=== PATIENT | male | born 1975 | race Caucasian/White ===

== ENCOUNTER 2016-12-02 23:55 | Inpatient (IN) | payer OTHER ==
[~2016-12-02] VITALS: Ht 190.5 cm; Wt 79.8 kg
--- NOTE | 2016-12-03 00:12 | NUR ---
PT BIBA FROM HOME. PT IS ONLY UKRANIAN SPEAKING BUT GODDAUGHTER IS AT BEDSIDE FOR TRANSLATION. PER FAMILY, PT WAS SENT HOME FROM WORK MONDAY MORNING FOR DRUNKEN BEHAVIOR. WHEN PT GOT HOME FAMILY STATES THAT THEY DID NOT NOTICE ANY ALCOHOL CONSUMPTION BUT PT WAS NOT ACTING LIKE HIMSELF. PT'S FAMILY STATES PT WAS AGITATED, ANSWERED QUESTIONS CORRECTLY, BUT WAS SLOW TO RESPOND. FAMILY STATES THAT PT HAS ALSO BEEN MIXING UP WORDS. PT RECENTLY STARTED TAKING INSULIN FOR DM. AT HOME FAMILY STATES BLOOD SUGAR WAS 328 AND PT TOOK INSULIN. UPON ED ARRIVAL PT'S FINGERSTICK WAS 382. FAMILY IS UNSURE OF HOW MUCH INSULIN PT TOOK AND PT ALSO CANNOT REMEMBER HOW MUCH WAS TAKEN. PT ALERT AND ORIENTED, DENIES ANY PAIN OR WEAKNESS. GOOD STRENGHTH IN BLE AND BUE.
--- NOTE | 2016-12-03 00:40 | NUR ---
PT AMBULATORY TO RESTROOM WITH EVEN AND STEADY GAIT, FAMILY MEMBER IN ATTENDANCE.
[2016-12-03 00:49] LABS: ABSOLUTE BASOPHIL COUNT 0 /CUMM (0.0-0.2); ABSOLUTE EOSINOPHIL COUNT 0.1 /CUMM (0.0-0.7); ABSOLUTE GRANULOCYTE CT 2.1 /CUMM (1.4-6.5); ABSOLUTE LYMPH COUNT 0.9 /CUMM (1.2-3.4); ABSOLUTE MONOCYTE COUNT 0.5 /CUMM (0.10-0.60); BASOPHIL % 0.6 % (0.0-2.0); EOSINOPHIL % 1.7 % (0-5); GRANULOCYTE % 58.4 % (42.2-75.2); HEMATOCRIT 38.8 % (42-52); MEAN CORPUSCULAR HGB 30.5 PG (27.0-31.0); MEAN CORPUSCULAR HGB CONC 34.7 G/DL (33.0-37.0); MEAN CORPUSCULAR VOLUME 88.1 FL (80.0-94.0); MEAN PLATELET VOLUME 7.8 FL (7.4-10.4); RBC DISTRIBUTION WIDTH 15.3 % (11.5-14.5); RED BLOOD CELL CT 4.41 /CUMM (4.70-6.10); WHITE BLOOD CELL COUNT 3.7 /CUMM (4.8-10.8)
[2016-12-03 01:03] LABS: PLATELET COUNT 49 /CUMM (130-400)
--- NOTE | 2016-12-03 01:17 | NUR ---
PT AWAITING PROVIDER EVAL. FAMILY REMAINS AT BEDSIDE.
--- NOTE | 2016-12-03 01:36 | CT SCAN REPORT ---
EXAMINATION: CT HEAD WITHOUT CONTRAST CLINICAL INFORMATION: Altered mental status. Trauma. COMPARISON: None. TECHNIQUE: Contiguous axial imaging was performed from the skull base to vertex without intravenous contrast. DLP: 648 mGy-cm. FINDINGS: The study is somewhat motion limited. There is no evidence of acute intracranial hemorrhage or territorial infarction. No abnormal mass effect or midline shift is seen. Dunlap to white matter differentiation is well preserved. No extra-axial fluid collections are identified. No hydrocephalus. No significant volume loss. There is no abnormal attenuation within the brain parenchyma. The osseous structures and soft tissues are normal. The mastoid air cells and visualized portions of the paranasal sinuses are well aerated. IMPRESSION: No acute intracranial pathology.
--- NOTE | 2016-12-03 01:39 | ED AMS/SEIZURE/WEAK/DIZZY ---
History of Present Illness General Chief Complaint: General Adult Stated Complaint: BIBA, WEAKNESS Source: patient, family Exam Limitations: somnulence Vital Signs & Intake/Output Vital Signs & Intake/Output Vital Signs Date Time Temp Pulse Resp B/P B/P Pulse O2 O2 Flow FiO2 Mean Ox Delivery Rate 12/04 1418 98.2 99 20 145/82 97 12/04 0940 63 130/76 12/04 0729 97.8 63 20 130/76 97 Room Air 12/03 2238 98.3 67 20 124/64 97 Room Air ED Intake and Output 12/04 0000 12/03 1200 Intake Total 1775 0 Output Total Balance 1775 0 Intake, IV 375 Intake, Oral 1400 0 Number 1 Bowel Movements Patient 176 lb Weight Weight Reported by Patient Measurement Method Allergies Coded Allergies: No Known Allergies (12/03/16) Reconcile Medications Nadolol 20 MG TABLET 1 TAB PO DAILY ESOPHAGEAL VARICES (Reported) Omeprazole 40 MG CAPSULE.DR 1 CAP PO DAILY LIVER/GERD (Reported) Triage Note: PT BIBA FROM HOME. PT IS ONLY UKRANIAN SPEAKING BUT GODDAUGHTER IS AT BEDSIDE FOR TRANSLATION. PER FAMILY, PT WAS SENT HOME FROM WORK MONDAY MORNING FOR DRUNKEN BEHAVIOR. WHEN PT GOT HOME FAMILY STATES THAT THEY DID NOT NOTICE ANY ALCOHOL CONSUMPTION BUT PT WAS NOT ACTING LIKE HIMSELF. PT'S FAMILY STATES PT WAS AGITATED, ANSWERED QUESTIONS CORRECTLY, BUT WAS SLOW TO RESPOND. FAMILY STATES THAT PT HAS ALSO BEEN MIXING UP WORDS. PT RECENTLY STARTED TAKING INSULIN FOR DM. AT HOME FAMILY STATES BLOOD SUGAR WAS 328 AND PT TOOK INSULIN. UPON ED ARRIVAL PT'S FINGERSTICK WAS 382. FAMILY IS UNSURE OF HOW MUCH INSULIN PT TOOK AND PT ALSO CANNOT REMEMBER HOW MUCH WAS TAKEN. PT ALERT AND ORIENTED, DENIES ANY PAIN OR WEAKNESS. GOOD STRENGHTH IN BLE AND BUE. Triage Nurses Notes Reviewed? yes HPI: Patient presents for evaluation of severe constant and worsening lethargy and weakness. In addition the patient's blood sugar levels have been running in the 300 range despite the use of insulin. There is been no associated fever or cold symptoms fall sore trauma. The family noted that the patient's voice was hoarse over the past day or 2. Patient denies alcohol use, having quit about 5 weeks ago. He denies drug use. Past History Travel History Traveled to [place] past 21 day No Medical History Any Pertinent Medical History? see below for history Hepatic: hepatitis C Endocrine: diabetes Surgical History Surgical History: non-contributory Psychosocial History What is your primary language Hebrew Tobacco Use: Never used Family History Hx Contributory? No Review of Systems Review of Systems Constitutional: Reports: weakness. EENTM: Reports: no symptoms. Respiratory: Reports: no symptoms. Cardiovascular: Reports: no symptoms. GI: Reports: no symptoms. Genitourinary: Reports: no symptoms. Musculoskeletal: Reports: no symptoms. Skin: Reports: no symptoms. Neurological/Psychological: Reports: no symptoms. Hematologic/Endocrine: Reports: no symptoms. Immunologic/Allergic: Reports: no symptoms. All Other Systems: Reviewed and Negative Physical Exam Physical Exam General Appearance: see below Comments: Gen.: Well-nourished, well-developed, no acute respiratory distress. Somnolent but easily arousable. Head: Normocephalic, atraumatic. Eyes: Normal inspection bilaterally Ears: Normal inspection bilaterally Nose: Normal inspection Throat/mouth : Moist mucosa Neck: Supple, full range of motion, no goiter Heart: Regular rate and rhythm, no murmurs rubs or gallops Lungs: Clear to auscultation bilaterally with normal air entry Chest: Nontender Back: Normal range of motion Abdomen: Soft, nontender, nondistended, normal bowel sounds Extremities: Normal range of motion grossly, equal radial pulses, no cyanosis clubbing or edema Neurologic: Cranial nerves grossly intact, speech is clear Skin: warm and dry Psychiatric: Calm, cooperative, no apparent delusions or hallucinations Core Measures ACS in differential dx? No CVA/TIA Diagnosis: No Severe Sepsis Present: No Septic Shock Present: No Progress Differential Diagnosis: alcohol intoxication, dehydration, drug intoxication, electrolyte imbalance, hypoglycemia, hypoxia Plan of Care: Orders Procedure Date/time Status CBC WITHOUT DIFFERENTIAL 12/05 0600 Active Consistent Carbohydrate 3 12/04 B Active Current Medications Sig/Carlos Eduardo Start time Last Medication Dose Stop Time Status Admin Insulin Aspart 0 AT BEDTIME 12/040 AC 12/04 (NovoLOG) 2136 Insulin Detemir 15 UNITS BID 12/04 2200 AC 12/04 (Levemir) 213 Lactulose 30 GM TID 12/04 1600 AC 12/04 (Enulose 20GM/30ML) 213 Insulin Aspart 0 TIDAC 12/04 1200 AC 12/04 (NovoLOG) 1627 Insulin Aspart 12 UNITS ONCE ONE 12/04 0015 CAN (NovoLOG) 12/04 0016 Nadolol 20 MG DAILY 12/03 1000 AC 12/04 (Corgard) 0940 Diclofenac Sodium 1 ARYA 4 TIMES/DAY PRN 12/03 0700 AC (Voltaren 1% Gel) Acetaminophen 650 MG Q6P PRN 12/03 0500 AC (Tylenol) Pantoprazole Sodium 40 MG DAILY 12/03 0500 AC 12/04 (Protonix) 0939 Laboratory Tests 12/04/16 0635: Anion Gap 7, Estimated GFR > 60, BUN/Creatinine Ratio 22.5, Total Bilirubin 1.7 H, Direct Bilirubin 0.4, AST 86 H, ALT 97 H, Alkaline Phosphatase 96, Total Protein 6.3, Albumin 2.8 L, CBC w Diff NO MAN DIFF REQ, RBC 4.57 L, MCV 88.4, MCH 30.8, RDW 15.5 H, MPV 8.7, Gran % 63.8, Lymphocytes % 24.0, Monocytes % 9.7 H, Eosinophils % 2.2, Basophils % 0.3, Absolute Granulocytes 2.4, Absolute Lymphocytes 0.9 L, Absolute Monocytes 0.4, Absolute Eosinophils 0.1, Absolute Basophils 0, PUBS MCHC 34.8 Diagnostic Imaging: Discussed w/RAD: CT Scan. Radiology Impression: PATIENT: MITESH CHI PRESENT AGE: 41 PATIENT ACCOUNT NO: [id number] : 74 LOCATION: [facility] ORDERING PHYSICIAN: MICHELLE SCOTT MD SERVICE DATE: 12/03/16 EXAM TYPE: CAT - CT HEAD WO IV CONTRAST EXAMINATION: CT HEAD WITHOUT CONTRAST CLINICAL INFORMATION: Altered mental status. Trauma. COMPARISON: None. TECHNIQUE: Contiguous axial imaging was performed from the skull base to vertex without intravenous contrast. DLP: 648 mGy-cm. FINDINGS: The study is somewhat motion limited. There is no evidence of acute intracranial hemorrhage or territorial infarction. No abnormal mass effect or midline shift is seen. Dunlap to white matter differentiation is well preserved. No extra-axial fluid collections are identified. No hydrocephalus. No significant volume loss. There is no abnormal attenuation within the brain parenchyma. The osseous structures and soft tissues are normal. The mastoid air cells and visualized portions of the paranasal sinuses are well aerated. IMPRESSION: No acute intracranial pathology. DICTATED BY: CHATA QUIÑONEZ,ANEL DATE/TIME DICTATED:12/03/16129 PANTOGRAPH ENGRAVER: CITLALY DATE/TIME TRANSCRIBED:12/03/16129 CONFIDENTIAL, DO NOT COPY WITHOUT APPROPRIATE AUTHORIZATION. <Electronically signed in Other Vendor System> SIGNED BY: CHATA QUIÑONEZ,ANEL 12/03/16135 Initial ED EKG: NSR, rate (63), RBBB Comments: 12/03/2016 3:20:57 AM patient and family updated on test results. He has received 2 L normal saline and I have ordered subcutaneous insulin for his hyperglycemia and lactulose for his hyperammonemia. Departure Departure Disposition: STILL A PATIENT Condition: Stable Clinical Impression Primary Impression: Hepatic encephalopathy Secondary Impressions: Hyperglycemia Referrals: UNKNOWN (PCP/Family) Departure Forms: Customer Survey General Discharge Information Admission Note Spoke With: REINA QUI[facility]ONEZ,[facility] Documentation of Exam: Documentation of any treatments & extenuating circumstances including Concerns Regarding Discharge (functional status, medication knowledge or non-compliance, living conditions, etc.) that warrant an admission rather than observation: Patient has experienced worsening mental status over the past few days secondary to hepatic encephalopathy as a combination of a history of hepatitis C and alcoholism. The patient's family states that he has not been himself recently and I feel he is encephalopathy would prevent him from compliance with outpatient treatment plan. I also feel he would not be able to maintain his activities of daily living. Is likely he would return in worse clinical condition including potential injury secondary to falls or poor judgment/ confusion. Complicating matters is the patient's history of poorly controlled diabetes with a glucose of just under 400. This will also require treatment with IV fluids and insulin. Patient's ammonia level and blood glucose level should be monitored and treated accordingly. He should be counseled on dietary modifications to control his ammonia level and glucose. Endocrine and GI consultations should be considered.. I feel this patient will require a multiple day hospitalization. Critical Care Note Critical Care Note Critical Care Time: 30-74 min
--- NOTE | 2016-12-03 01:40 | NUR ---
DR SCOTT AT BEDSIDE FOR EVAL.
--- NOTE | 2016-12-03 03:22 | NUR ---
PT MEDICATED PER EMAR WITH NOVOLIN R FOR FINGERSTICK OF 346, ENULOSE AND NS BOLUS INFUSING.
--- NOTE | 2016-12-03 03:42 | NUR ---
PT AMBULATORY TO RESTROOM WITH EVEN AND STEADY GAIT.
--- NOTE | 2016-12-03 03:58 | History & Physical ---
JORDY QUIÑONEZ,ALEKSANDR 12/03/16 0353: General Information and HPI MD Statement: I have seen and personally examined MITESH CHI and documented this H&P. The patient is a 41 year old M who presented with a patient stated chief complaint of []. Source of Information: patient, family Exam Limitations: confusion History of Present Illness: Patient is a 41-year-old Togolese Speaking male, chronic smoker with significant past medical history of partialy treated hepatitis C , uncontrolled diabetes presented with chief complaints of generalized weakness and high sugar level. Chronic hepatitis C, decompensated -it was diagnosed around 10-12 years ago at the [facility] and was treated by injection every week for a year. After that he did not have any follow up. Recently, he started having generalized weakness with history of an intentional weight loss around 60 pound and bleeding gums. So he was evaluated at [facility] on 11/17/2016.He had EGD at in [facility] which showed large esophageal varices, gastric varices and gastritis. He also found to have thrombocytopenia (44,000).CT abdomen and pelvis at that time were showing evidence of portal hypertension with varices. Denies any history of blood transfusion, tatoo, Personal history - he moved from the [facility] to [facility] 2 years ago. 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 He smokes cigarettes around 10 cigarettes per day since last 20 years. He occasionally drinks alcohol. He denies any IV drug abuse. Allergies - no known drug allergies Allergies/Medications Allergies: Coded Allergies: No Known Allergies (12/03/16) Home Med list Insulin Aspart (Novolog) 100 UNIT/ML VIAL 0 SC TIDAC DM Blood sugar # UNIT Less than 80 0 80-100 4 101-120 4 121-150 4 151-200 6 201-250 8 251-300 10 301-350 12 351-400 14 More than 400 16 units Insulin Aspart (Novolog) 100 UNIT/ML VIAL 0 SC BEDTIME DM Blood sugar # UNITS Less than 250 0 251-300 2 301-350 3 351-400 4 more than 400 5 Insulin Detemir (Levemir) 100 UNIT/ML VIAL 15 UNITS SC BID Diabetes Lactulose 20 GRAM/30 ML SOLUTION 30 GM PO TID HEPATIC ENCEPHALOPATHY Nadolol 20 MG TABLET 1 TAB PO DAILY ESOPHAGEAL VARICES (Reported) Omeprazole 40 MG CAPSULE.DR 1 CAP PO DAILY LIVER/GERD (Reported) Past History Travel History Traveled to [place] past 21 day No Medical History Hepatic: hepatitis C Endocrine: diabetes Surgical History Surgical History: non-contributory Review of Systems Review of Systems Constitutional: Denies: no symptoms. Comments cannt comment as patient was sleepy and also was not able to understand south [place] Exam & Diagnostic Data Last 24 Hrs of Vital Signs/I&O Vital Signs Date Time Temp Pulse Resp B/P B/P Pulse O2 O2 Flow FiO2 Mean Ox Delivery Rate 12/03 0445 98.0 71 20 137/81 98 Room Air 12/03 0003 98.2 70 20 148/80 100 Room Air Intake & Output 12/03 0800 12/03 0000 12/02 1600 Intake Total 0 Output Total Balance 0 Intake, Oral 0 Patient 80 kg Weight Physical Exam General Appearance Alert, Cooperative, No Acute Distress Skin spider navei Neck Supple, raised JVD Cardiovascular Normal S1, Normal S2 Lungs Clear to Auscultation, Normal Air Movement Abdomen Soft, No Tenderness Neurological Normal Speech, Strength at 5/5 X4 Ext, Normal Tone Extremities No Clubbing, No Cyanosis, No Edema Vascular Normal Pulses, Pulses Symmetrical Last 24 Hrs of Labs/Evaristo: Laboratory Tests 12/03/16 0155: Ammonia 74 H 12/03/16 0048: Urine Opiates Screen < 100.00, Methadone Screen < 40, Barbiturate Screen < 60, Ur Phencyclidine Scrn < 6.00, Amphetamines Screen < 100, U Benzodiazepines Scrn < 85, Urine Cocaine Screen < 50, Urine Cannabis Screen < 5.00, Urinalysis LIGHT H, Urine Color YEL, Urine Clarity HAZY H, Urine pH 7.0, Ur Specific [place] 1.015, Urine Protein NEG, Urine Ketones NEG, Urine Nitrite NEG, Urine Bilirubin NEG, Urine Urobilinogen 2.0 H, Ur Leukocyte Esterase TRACE H, Ur Microscopic SEDIMENT EXAMINED, Urine RBC 25-50 H, Urine WBC 3-5 H, Ur Epithelial Cells RARE, Urine Bacteria FEW H, Micro UA Comment , Urine Hemoglobin LARGE H, Urine Glucose >=1000 H 12/03/16 0035: Anion Gap 8, Estimated GFR > 60, BUN/Creatinine Ratio 28.0 H, Glucose 376 H, Calcium 9.1, Total Bilirubin 2.0 H, AST 86 H, ALT 99 H, Alkaline Phosphatase 102, Troponin I < 0.01, Total Protein 6.1 L, Albumin 2.7 L, Globulin 3.4, Albumin/Globulin Ratio 0.8 L, TSH 1.160, Thyroxine (T4) 9.3, Thyroxine Binding Indx 41.8 H, CBC w Diff NO MAN DIFF REQ, RBC 4.41 L, MCV 88.1, MCH 30.5, RDW 15.3 H, MPV 7.8, Gran % 58.4, Lymphocytes % 25.5, Monocytes % 13.8 H, Eosinophils % 1.7, Basophils % 0.6, Absolute Granulocytes 2.1, Absolute Lymphocytes 0.9 L, Absolute Monocytes 0.5, Absolute Eosinophils 0.1, Absolute Basophils 0, PUBS MCHC 34.7, Serum Alcohol < 10.0 Microbiology 12/04 47 URINE ROUT: Urine Culture - RECD Diagnostic Data EKG Results NSR, RBBB, Assessment/Plan Assessment: Patient is a 41-year-old Togolese Speaking male, chronic smoker with significant past medical history of partialy treated hepatitis C , uncontrolled diabetes presented with chief complaints of generalized weakness and high sugar level. Vital signs at the time of admission-temperature 98.2, pulse 70, respiratory rate 20, blood pressure 140/80, SaO2 100% on room air Pertinent labs -hemoglobin 13.4, hematocrit 38.8, platelet count 49,000, K-3.7, glucose 376, total bilirubin 2.0, AST 86, AST 99, ammonia 74, albumin 2.7, thyroxine-binding index 41.8, urine RBC 25-50, urine glucose more than thousand, urine hemoglobin large, U tox negative, Plan - Decompensated cirrhosis with hepatic encephalopathy secondary to hepatitis C, contracted due to unknown etiology * We will admit the patient into general medical floor * We will keep patient nothing by mouth * Neuro check every 2 hourly * Watch for the sign of bleeding * We will avoid sedating hypnotics * We will place a GI consult and followed the recommendation * We will start patient on lactulose 20 grams 3 times a day, with target of 2-3 bowel movements per day * We'll start patient on tablet rifaximin 550 milligrams 3 times a day * We will continue patient on nadolol 20 milligrams daily Uncontrolled diabetes * We will start patient on insulin, Levemir 10 units at nighttime * We will check blood sugar level 3 times a day and bed time, and gave NovoLog according to the sliding scale Thrombocytopenia * Probably secondary to the cirrhosis * We will regularly monitor it and watch for the bleeding CODE STATUS-full code DVT prophylaxis-ALP S, avoid heparin as patient is having thrombocytopenia Diet - low protein diet As Ranked By This Provider Problem List: 1. Hepatic encephalopathy 2. Hepatitis C infection 3. Diabetes mellitus Core Measures/Miscellaneous Acute Coronary Syndrome ACS Diagnosis: No Cerebrovascular Accident CVA/TIA Diagnosis: No Congestive Heart Failure CHF Diagnosis: No Venous Thromboembolism VTE Risk Factors: Age > 40 No [facility] VTE prophylaxis d/t: No contraindications No VTE Pharm Prophylaxis d/t: No contraindications VTE Diagnosis: No VTE Type: NONE VTE Confirmed by (Test): NONE Severe Sepsis Severe Sepsis Present: No Septic Shock Septic Shock Present: No Miscellaneous Documentation Attending Case Discussed With: REINA QUIÑONEZ,[facility] Primary Care Physician: UNKNOWN Patient sees these Specialists none Level of Patient Care: General Medicine [place] ONTIVEROS 12/03/16 0502: Resident Review Statement Resident Statement: examined this patient, discussed with manager internet, agreed with manager internet Other Findings: Patient is a 41-year-old Togolese man with past medical history significant for chronic hepatitis C resulted in liver cirrhosis with esophageal varices, thrombocytopenia, type 2 diabetes mellitus present illness the ED for the evaluation of acute altered mental with worsening weakness and lethargy for 1 day. Patient is Togolese speaking so most of the history was obtained from the family friend. As per patient was not in his usual state of health yesterday, appeared confused and lethargic. Also she noticed that his blood sugar levels were running in 300s despite of usual dose of insulin. There were no associated symptoms of fever or chills, nausea vomiting abdominal discomfort. No diarrhea or constipation. The family has also noticed hoarseness of voice for the last 2 days. No chest discomfort/trouble breathing or palpitations was told by the patient As mentioned above patient has a history of hepatitis C, diagnosed more than 10 years ago at [facility], was on an unknown treatment which included injections once a week for year, his hepatitis C was in remission. This year at the time of [facility] patient had an episode of bleeding from the lip ,he was seen in the ED at [place] ,and was diagnosed with thrombocytopenia( platelet count was 44). The patient was noted to have unintentional weight loss of about 60 pounds for the last 4 years and for the past 1 year he had been bleeding from the gums. The symptoms were associated with generalized weakness and malaise. He was hospitalized, CT abdomen and pelvis revealed cirrhosis with hepatic congestion, portal venous hypertension and extensive intra-abdominal/pelvic collateral vessels, hepatosplenomegaly. HIV was negative. Endoscopy was done that revealed large esophageal varices, gastric (and gastritis patient was discharged home to follow-up with the therapeutic massage technician on 12/09/2016. Patient is a current every day smoker and smokes 10 cigarettes a day for many years now. Denies any IV drug abuse, blood transfusions in the past, history of alcohol abuse in the past. General Appearance: Alert, No Acute Distress, spider nevi visible on the forehead Skin: Grossly normal HEENT: PEERLA Neck: Supple, No JVD Cardiovascular: Regular Rate, Normal S1, Normal S2, No Murmurs Lungs: Clear to Auscultation, Normal Air Movement, spider nevi visible on the chest wall Abdomen: Normal Bowel Sounds, Soft, No Tenderness Neurological: Neurologic: Cranial nerves II through XII intact, normal visual alexandre to direct confrontation, no plantar drift, [id number] and heel-to -neal testing normal, motor strength 5/5 throughout, no sensory deficits Extremities: No Clubbing, No Cyanosis, No Edema Vascular: Normal Pulses Pertinent labs on admission WBC count 3.7, H&H 13.4/38.8, platelets show 49, elevated blood glucose levels 376 slightly deranged LFTs, elevated ammonia level 74 , total bilirubin 2 .normal thyroid function tests. Urine tox is negative Urine analysis positive for large hemoglobin, with trace leukocyte esterase. CT head done in the ED did not show any acute intracranial pathology EKG done in the ED showed normal sinus rhythm with right bundle branch block Assessment and plan: This is a 41-year-old Togolese man with past medical history significant for chronic hepatitis C resulted in liver cirrhosis with , hepatosplenomegaly, esophageal varices, thrombocytopenia, type 2 diabetes mellitus present illness the ED for the evaluation of acute altered mental with worsening weakness and lethargy for 1 day. Elevated ammonia levels on admission labs suggestive of acute hepatic encephalopathy most likely from underlying hepatitis. Plan 1. Acute hepatic encephalopathy most likely from underlying chronic hepatitis C with cirrhosis(calculated meld score of 16)-as of . * We will admit the patient to general floor. * Calculate meld score, check INR. * Patient received 20 mg of lactulose in the ED that resulted in slight improvement in his confusion will continue with lactulose 20 mg 3 times a day to goal of 2-3 bowel movements each day. * Hepatitis panel. Check Tylenol and acetaminophen levels * HIV checked recently was negative * No need to repeat any imaging studies .CT abdomen and pelvis done in October 2016 revealed cirrhosis with hepatic congestion, portal venous hypertension and extensive intra-abdominal/pelvic collateral vessels, hepatosplenomegaly. * Continue IV Protonix * Continue nadolol 20 mg daily for esophageal varices. * We'll obtain gastroenterology consult in the morning. 2. Hyperglycemia(history of uncontrolled type 2 diabetes mellitus) * Start home dose of Levemir 10 units daily * Start the patient on high-dose NovoLog sliding scale * Check hemoglobin A1c * Continue with Accu-Cheks * Carbohydrate consistent diet 3 chronic thrombocytopenia from chronic hepatitis: * Repeat labs in the morning. * Patient has been given referral in [place] to see weight and balance control agent as an outpatient. 4 current every day smoker * Counseled about smoking cessation * Start nicotine patches in the hospital. Moderate to severe pain controlled with oxycodone DVT prophylaxis Alps Patient is full code REINA QUIÑONEZ, [facility] 12/03/16 0556: Attending MD Review Statement Attending Statement Attending MD Statement: examined this patient, discuss w/resident/PA/SUPERVISOR GARAGE, agreed w/resident/PA/SUPERVISOR GARAGE, discussed with family Attending Assessment/Plan: 41 yo Togolese speaking M smoker, with h/o T2DM, chronic Hep C (acquired > 10 yrs ago, Rx once a week injections for 1 yr) with thrombocytopenia, liver cirrhosis, esophageal varices and portal hypertension, coinfection with Hep B, who is visiting from [place] is brought in by family for increasing lethargy and confusion for past 24 hours. Patient was not acting himself. He was answering questions, but slow to respond. Sugars were 328. Family denies any reports of heartburn, hematemesis, melena or BRBPR. H/o alcohol use though not abuse per family, no IVDA, no blood transfusions or tatooes. Patient was admitted to [facility] [place] (November 05 to ) for thrombocytopenia that was noted on blood work, associated with bleeding gums, weakness and weight loss of 60 lbs over 4 yrs. EGD done during the hospitalization showed large esophageal varices and gastritis, patient is scheduled to follow up with GI on December 09 at [place]. He has been initiated on nadolol. VSS. Patient lethargic, drowsy, arousable, answers a few questions though slow to respond. Skin: spider nevi+, unable to follow command to check for flapping tremors, no pallor or icterus. Limited neuro exam: nonfocal. Labs: WBC 3.7, H/H 13.4/38.8, Plt 49, T. Bili 2.0, AST 86, ALT 99, ammonia 74, trop neg, albumin 2.7, TSH normal. Utox neg, alcohol <10. CT head neg. EKG: SR, RBBB. 1. Hepatic encephalopathy in the setting of chronic Hep C with cirrhosis. GM admit, fall precautions, lactulose 20 gm TID titrate up to 2-3 soft BM's per day, initiate rifaximin 550 mg BID, GI consult. Patient is scheduled to follow up GI at [place] on December 09. Check INR and calculate MELD score. Check hepatitis panel, tylenol levels. HIV done last month was negative. Gentle IV hydration. Continue nadolol 20 mg daily. IV PPI. NPO until mentation improves. Avoid opiates for pain meds. 2. T2DM. Accucheks, check HbA1c, insulin NPO SS, levemir half dose until patient resumes eating. 3. Thrombocytopenia and transaminitis in the setting of Hep C. Monitor for bleeding, check INR. Fractionate bilirubin, trend LFTs. DVT ppx Alps. Full code.
--- NOTE | 2016-12-03 04:25 | NUR ---
HOUSESTAFF AT BEDSIDE.
[2016-12-03] MEDS ORDERED: NADOLOL20 M1 PO (04:56)
[2016-12-03] MEDS ORDERED: OMEPRAZOLE40 M1 PO (04:57)
--- NOTE | 2016-12-03 05:35 | NUR ---
REPORT GIVEN TO NAEL GIBBONS.
--- NOTE | 2016-12-03 05:57 | Admission Certification ---
Admission Certification Certification Statement - As attending physician, I certify that at the time of - admission, based on clinical presentation, severity of - symptoms, need for further diagnostic testing and - therapeutic interventions, and risk of adverse outcomes - without in-hospital treatment, in my clinical assessment, - this patient requires an acute hospital stay for a minimum - of two nights or longer. I have also considered psychsocial - factors such as support system, advanced age, financial - issues, cognitive issues, and failed out-patient treatments, - past re-admission history, safety of patient, and lack of - compliance as applicable. Specific rationale supporting this admission is: Hepatic encephalopathy.
--- NOTE | 2016-12-03 06:49 | NUR ---
PT ARRIVED TO FLOOR AT 0555 VIA WC ACCOMPANIED BY FAMILY. PT DOES NOT SPEAK [place], TRANSLATED THROUGH [employer] (FRED [phone]) PLEASE CALL HER WITH ANY QUESTIONS. PT A&OX3 PER FAMILY, RA, DENIES SOB, SKIN IS INTACT, DROWSY. ADMISSION QUESTIONS ANSWERED BY FAMILY. PT APPEARS TO BE RESTING COMFORTABLY AT THIS TIME. WILL MONITOR.
[2016-12-03 14:07] LABS: ABSOLUTE BASOPHIL COUNT 0 /CUMM (0.0-0.2); ABSOLUTE GRANULOCYTE CT 1.5 /CUMM (1.4-6.5); ABSOLUTE LYMPH COUNT 0.7 /CUMM (1.2-3.4); ABSOLUTE MONOCYTE COUNT 0.3 /CUMM (0.10-0.60); RBC DISTRIBUTION WIDTH 15.3 % (11.5-14.5); WHITE BLOOD CELL COUNT 2.6 /CUMM (4.8-10.8)
[2016-12-03 14:12] LABS: PT 16.3 SEC (9.4-12.5)
[2016-12-03 14:15] LABS: ABSOLUTE EOSINOPHIL COUNT 0 /CUMM (0.0-0.7); BASOPHIL % 0.5 % (0.0-2.0); EOSINOPHIL % 1.7 % (0-5); GRANULOCYTE % 57.7 % (42.2-75.2); HEMATOCRIT 36.8 % (42-52); MEAN CORPUSCULAR HGB 30.9 PG (27.0-31.0); MEAN CORPUSCULAR HGB CONC 34.7 G/DL (33.0-37.0); MEAN CORPUSCULAR VOLUME 89.3 FL (80.0-94.0); MEAN PLATELET VOLUME 9.4 FL (7.4-10.4); RED BLOOD CELL CT 4.12 /CUMM (4.70-6.10)
[2016-12-03 14:32] LABS: PLATELET COUNT 28 /CUMM (130-400)
[2016-12-03 14:37] VITALS: BP 125/76
--- NOTE | 2016-12-03 14:47 | Cons- Gastroenterology ---
General Information and HPI Consulting Request Date of Consult: 12/03/16 Requested By: REINA QUIÑONEZ,DARCY Reason for Consult: Confusion Source of Information: patient, family Exam Limitations: no limitations History of Present Illness: Patient is a 41-year-old [place] man who has been in the [place] for 2 years and is known to have hepatitis C infection with the presence of esophageal varices. Patient is a resident of [facility] and has been in [place] for approximately 2 days visiting a friend. After arrival at friends place on patient had a fairly busy day where he was helping his friend with some plumbing. No unusual meals or eating out. No alcohol. His and daughter who are in the room with him noticed yesterday that he was appearing confused. As never had such an episode of confusion in the past. On direct questioning with the help of the daughter as a director of dementia operations he states that he had mild nausea on Monday and but no additional symptoms. He did not have any fevers chills right goers abdominal pain diarrhea vomiting cough dysuria. Patient has a history of moderate alcohol consumption in the past according to his family. They state that he would take alcohol mostly at weekends and was never a daily drinker. I do not have a clear idea of the amounts that he was taking. However patient has not been taking any alcohol for approximately 5 weeks. Chronic hepatitis C, decompensated -it was diagnosed around 10-12 years ago at the [facility] and was treated by injection every week for a year. After that he did not have any follow up. Recently, he started having generalized weakness with history of an intentional weight loss around 60 pound and bleeding gums. So he was evaluated at [facility] on 11/17/2016.He had EGD at in [facility] which showed large esophageal varices, gastric varices and gastritis. He also found to have thrombocytopenia (44,000).CT abdomen and pelvis at that time were showing evidence of portal hypertension with varices. Denies any history of blood transfusion, tatoo, Personal history - he moved from the [facility] to [facility] 2 years ago. 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 He smokes cigarettes around 10 cigarettes per day since last 20 years. He occasionally drinks alcohol. He denies any IV drug abuse. Allergies - no known drug allergies Allergies/Medications Allergies: Coded Allergies: No Known Allergies (12/03/16) Home Med List: Nadolol 20 MG TABLET 1 TAB PO DAILY ESOPHAGEAL VARICES (Reported) Omeprazole 40 MG CAPSULE. 1 CAP PO DAILY LIVER/GERD (Reported) Past History Travel History Traveled to [place] past 21 day No Medical History Blood Transfusion Hx: Yes Neurological: NONE EENT: NONE Cardiovascular: NONE Respiratory: NONE Gastrointestinal: NONE Hepatic: hepatitis C Renal: NONE Musculoskeletal: NONE Psychiatric: NONE Endocrine: diabetes Blood Disorders: NONE Cancer(s): NONE REEL WINDER/Reproductive: NONE Surgical History Surgical History: non-contributory Psychosocial History Where Do You Live? Home Services at Home: None Smoking Status: Current Everyday Smoker Review of Systems Review of Systems: Currently feels well. No nausea vomiting abdominal pain and reflux dysuria fevers chills. Exam & Diagnostic Data Vital Signs and I&O Patient is lying in bed. Relatively alert in that he is orientated to place person and time. Unable to give his whole home address in [place]. Patient has palmar erythema no asterixis multiple spider angiomata. Muscle is relatively preserved. Abdomen is soft tender liver is small to percussion edge is not palpable. No clinical splenomegaly. No clinical ascites. Vital Signs Date Time Temp Pulse Resp B/P B/P Pulse O2 O2 Flow FiO2 Mean Ox Delivery Rate 12/03 1437 98.2 67 20 125/76 96 12/03 1056 88 122/80 12/03 0445 98.0 71 20 137/81 98 Room Air 12/03 0003 98.2 70 20 148/80 100 Room Air Intake & Output 12/03 1600 12/03 0400 12/02 1600 12/02 0400 12/01 0400 Intake Total 975 0 Output Total Balance 975 0 Intake, IV 375 Intake, Oral 600 0 Number 1 Bowel Movements Patient 176 lb 176 lb Weight Weight Reported by Patient Measurement Method Assessment/Plan Assessment/Recommendations: In summary we have a 41-year-old man with known hepatitis C cirrhosis and esophageal varices presenting with confusion. The confusion has a clinical characteristics of hepatic encephalopathy and appears to be improving quickly. 1. Hepatic encephalopathy. Patient has been started on lactulose. I have explained to daughter and that the patient needs to take lactulose to obtain 3-4 bowel movements a day. I have told them that they can vary the dosage to the desired effect. 2. No evidence of renal failure. No need for additional hydration or albumin. 3. Please obtain ultrasound of the abdomen specifically to look for any liver masses. Also to look for ascites. No clinical ascites but this is insensitive. 4. No sinus infection.. 5. Patient has known esophageal varices and is already on nadolol for his kardex clerk in [place]. 2 continue nadolol. Patient needs to be given a appointment with his [place] kardex clerk upon discharge. needs to start hepatitis C therapy as soon as possible. Consult Acknowledgment - Thank you for your consult request.
--- NOTE | 2016-12-03 15:08 | PN- Att Addend ---
Attending Addendum Attending Brief Note Patient seen and examined, Panamanian-speaking. Transit to help was used. He currently denies any complaints. He is much more awake now. Vital Signs Date Time Temp Pulse Resp B/P B/P Pulse O2 O2 Flow FiO2 Mean Ox Delivery Rate 12/03 1437 98.2 67 20 125/76 96 12/03 1056 88 122/80 12/03 0445 98.0 71 20 137/81 98 Room Air 12/03 0003 98.2 70 20 148/80 100 Room Air on exam; aox3, nad. cv; s1,s2, rrr resp; clear abd; soft, nt,bs+ ext; no edema. Laboratory Tests 12/03 12/03 12/03 1155 1155 0155 Chemistry Sodium (137 - 145 mmol/L) 137 Potassium (3.5 - 5.1 mmol/L) 3.5 Chloride (98 - 107 mmol/L) 108 H Carbon Dioxide (22 - 30 mmol/L) 21 L Anion Gap (5 - 16) 7 BUN (9 - 20 mg/dL) 12 Creatinine (0.7 - 1.2 mg/dL) 0.5 L Estimated GFR (>60 ml/min) > 60 BUN/Creatinine Ratio (7 - 25 %) 24.0 Hemoglobin A1c (4.2 - 5.8 %) Pending Ammonia (9 - 30 umol/L) 74 H Alpha Fetoprotein Pending Coagulation PT (9.4 - 12.5 SEC) 16.3 H INR (0.90 - 1.17) 1.56 H Hematology CBC w Diff MAN DIFF ORDERED WBC (4.8 - 10.8 /CUMM) 2.6 L RBC (4.70 - 6.10 /CUMM) 4.12 L Hgb (14.0 - 18.0 G/DL) 12.7 L Hct (42 - 52 %) 36.8 L MCV (80.0 - 94.0 FL) 89.3 MCH (27.0 - 31.0 PG) 30.9 RDW (11.5 - 14.5 %) 15.3 H Plt Count (130 - 400 /CUMM) 28 *L MPV (7.4 - 10.4 FL) 9.4 Gran % (42.2 - 75.2 %) 57.7 Lymphocytes % (20.5 - 51.1 %) 28.0 Monocytes % (1.7 - 9.3 %) 12.1 H Eosinophils % (0 - 5 %) 1.7 Basophils % (0.0 - 2.0 %) 0.5 Absolute Granulocytes (1.4 - 6.5 /CUMM) 1.5 Segmented Neutrophils (42.2 - 75.2 %) 53 Band Neutrophils (0.0 - 5.0 %) 2 Absolute Lymphocytes (1.2 - 3.4 /CUMM) 0.7 L Lymphocytes (20.5 - 51.1 %) 29 Monocytes (1.7 - 9.3 %) 13 H Absolute Monocytes (0.10 - 0.60 /CUMM) 0.3 Eosinophils (0 - 5.0 %) 3 Absolute Eosinophils (0.0 - 0.7 /CUMM) 0 Absolute Basophils (0.0 - 0.2 /CUMM) 0 Platelet Estimate (ADEQUATE) Normocytic RBCs VERIFIED Normochromic RBCs VERIFIED PUBS MCHC (33.0 - 37.0 G/DL) 34.7 Serology Hepatitis A IgM Ab (NONREACTIVE) Pending Hep Bs Antigen (NONREACTIVE) NONREACTIVE Hep B Core IgM Ab Conf (NONREACTIVE) Pending Hepatitis C Antibody (NONREACTIVE) Pending 12/03 0048 Toxicology Urine Opiates Screen (>2000 NG/ML) < 100.00 Methadone Screen (>300 NG/ML) < 40 Barbiturate Screen (>200 NG/ML) < 60 Ur Phencyclidine Scrn (>25 NG/ML) < 6.00 Amphetamines Screen (>1000 NG/ML) < 100 U Benzodiazepines Scrn (>200 NG/ML) < 85 Urine Cocaine Screen (>300 NG/ML) < 50 Urine Cannabis Screen (>50 NG/ML) < 5.00 Urines Urinalysis LIGHT H Urine Color (YEL,AMB,STR) YEL Urine Clarity (CLEAR) HAZY H Urine pH (5.0 - 8.0) 7.0 Ur Specific [place] (1.001 - 1.035) 1.015 Urine Protein (NEG,<30 MG/DL) NEG Urine Ketones (NEG) NEG Urine Nitrite (NEG) NEG Urine Bilirubin (NEG) NEG Urine Urobilinogen (0.1 - 1.0 EU/dl) 2.0 H Ur Leukocyte Esterase (NEG) TRACE H Ur Microscopic SEDIMENT EXAMINED Urine RBC (0 - 5 /HPF) 25-50 H Urine WBC (0 - 2 /HPF) 3-5 H Ur Epithelial Cells (NONE,FEW) RARE Urine Bacteria (NEG/NONE) FEW H Micro UA Comment Urine Hemoglobin (NEG) LARGE H Urine Glucose (N MG/DL) >=1000 H 12/03 0035 Chemistry Sodium (137 - 145 mmol/L) 140 Potassium (3.5 - 5.1 mmol/L) 3.7 Chloride (98 - 107 mmol/L) 110 H Carbon Dioxide (22 - 30 mmol/L) 22 Anion Gap (5 - 16) 8 BUN (9 - 20 mg/dL) 14 Creatinine (0.7 - 1.2 mg/dL) 0.5 L Estimated GFR (>60 ml/min) > 60 BUN/Creatinine Ratio (7 - 25 %) 28.0 H Glucose (65 - 99 mg/dL) 376 H Calcium (8.4 - 10.2 mg/dL) 9.1 Total Bilirubin (0.2 - 1.3 mg/dL) 2.0 H AST (17 - 59 U/L) 86 H ALT (21 - 72 U/L) 99 H Alkaline Phosphatase (< 127 U/L) 102 Troponin I (<0.11 ng/ml) < 0.01 Total Protein (6.3 - 8.2 g/dL) 6.1 L Albumin (3.5 - 5.0 g/dL) 2.7 L Globulin (1.9 - 4.2 gm/dL) 3.4 Albumin/Globulin Ratio (1.1 - 2.2 %) 0.8 L TSH (0.270 - 4.200 uIU/mL) 1.160 Thyroxine (T4) (4.5 - 10.9 ug/dL) 9.3 Thyroxine Binding Indx (23.5 - 40.5 % UPTAKE) 41.8 H Hematology CBC w Diff NO MAN DIFF REQ WBC (4.8 - 10.8 /CUMM) 3.7 L RBC (4.70 - 6.10 /CUMM) 4.41 L Hgb (14.0 - 18.0 G/DL) 13.4 L Hct (42 - 52 %) 38.8 L MCV (80.0 - 94.0 FL) 88.1 MCH (27.0 - 31.0 PG) 30.5 RDW (11.5 - 14.5 %) 15.3 H Plt Count (130 - 400 /CUMM) 49 L MPV (7.4 - 10.4 FL) 7.8 Gran % (42.2 - 75.2 %) 58.4 Lymphocytes % (20.5 - 51.1 %) 25.5 Monocytes % (1.7 - 9.3 %) 13.8 H Eosinophils % (0 - 5 %) 1.7 Basophils % (0.0 - 2.0 %) 0.6 Absolute Granulocytes (1.4 - 6.5 /CUMM) 2.1 Absolute Lymphocytes (1.2 - 3.4 /CUMM) 0.9 L Absolute Monocytes (0.10 - 0.60 /CUMM) 0.5 Absolute Eosinophils (0.0 - 0.7 /CUMM) 0.1 Absolute Basophils (0.0 - 0.2 /CUMM) 0 PUBS MCHC (33.0 - 37.0 G/DL) 34.7 Toxicology Salicylates (0 - 20.0 mg/dL) < 1.0 Acetaminophen (10.0 - 30.0 ug/mL) < 10.0 L Serum Alcohol (<10 MG/DL) < 10.0 A/P; 47-year-old male with past medical history significant for cirrhosis, hepatitis B and C, history of type 2 diabetes, history of esophageal rate he sees who was admitted with increasing lethargy and a question of hepatic encephalopathy. This morning patient is more awake, he has been started on lactulose. Continue his nadolol for his history of esophageal varices. Patient has worsening of thrombocytopenia, this is all likely secondary to cirrhosis. Agree with getting hematology consult. Appreciate GI consult. Please obtain abdominal ultrasound to assess his liver as well as for ascites to see if he continues to need Rifaximine are not. He is started on Levemir for hyperglycemia. Hep B surface ended and nonreactive, the rest of the panel is pending. DVT px; ALPS secondary to significant thrombocytopenia.
--- NOTE | 2016-12-03 15:30 | Cons- Hematology ---
General Information and HPI Consulting Request Date of Consult: 12/03/16 Requested By: REINA QUIÑONEZ,DARCY Reason for Consult: Thrombocytopenia Source of Information: patient, family, old records Exam Limitations: language barrier History of Present Illness: Mr. Newby is a 41-yo Kyrgyz male with history of chronic hepatitis C infection who presents to [facility] with confusion and appearing drunk. He is currently visiting family and friend with his daughter and . They live in [place]. He does not speak much Estonian. His daughter is acting as an interior painter. Per the daughtr, Mr. Newby has been well until arround when he started acting "drunk." He has not had any alcohol for 5 weeks. He has not taken any new medication besiede pantoprazole and nadolol. He has not had any fever or chills. He has not had any bleeding. He has not had any abdominal swelling. He has not had any trauma. Mr. Newby was helping his friend with the plumbing. Of note, he was recently admitted to the [facility] in [place] ([facility]) for thrombocytopenia with platelet count of 44,000 per GI note. He had EGD done and demonstrated esophageal varcies, gastric varices, and gastritis. He was started on pantoprazole and nadolol at that time. Imaging with CT scan of the abdomen/ pelvis was negative for acute abnormality but did show evidence of portal hypertension and varices. He has nevery had any confusion. He does have chronic hepatitis C infection. This was treated in [facility] for one year over 10 years ago. He reported it went completely away. He has been feeling well. Until this recent episode. This morning, he has felt significant better. He is close to baseline. He has an appointment his a starch crab on 12/09. He just moved from [facility] about 2 years ago. Previously he did live near [facility]. He does smoke cigarette. He has moderate alcohol consumption with last about 5 weeks ago. He has no chemical exposure. Allergies/Medications Allergies: Coded Allergies: No Known Allergies (12/03/16) Home Med List: Nadolol 20 MG TABLET 1 TAB PO DAILY ESOPHAGEAL VARICES (Reported) Omeprazole 40 MG CAPSULE.DR 1 CAP PO DAILY LIVER/GERD (Reported) Current Medications: Current Medications Sig/Carlos Eduardo Start time Last Medication Dose Route Stop Time Status Admin Acetaminophen 650 MG Q6P PRN 12/03 0500 AC PO Diclofenac Sodium 1 ARYA 4 TIMES/DAY PRN 12/03 0700 AC TOP Diclofenac Sodium 0 4 TIMES/DAY PRN 12/03 0500 DC TOP Insulin Aspart 0 TIDAC 12/03 0800 AC 12/03 SC 1155 Insulin Detemir 10 UNITS QPM 12/03 2200 AC SC Insulin Human Regular 8 UNITS ONCE ONE 12/03 0245 DC 12/03 SC 12/03 0246 0322 Lactulose 20 GM TID 12/03 1000 AC 12/03 PO 1156 Lactulose 0 .STK-MED ONE 12/03 0312 DC PO Lactulose 20 GM ONCE ONE 12/03 0245 DC 12/03 PO 12/03 0246 0322 Nadolol 20 MG DAILY 12/03 1000 AC 12/03 PO 1056 Oxycodone HCl 5 MG Q6P PRN 12/03 0500 DC PO Pantoprazole Sodium 0 .STK-MED ONE 12/03 0514 DC IV Pantoprazole Sodium 40 MG DAILY 12/03 0500 AC 12/03 IV 0516 Rifaximin 550 MG TID 12/03 1000 AC 12/03 PO 1055 Sodium Chloride 1,000 ML Q13H 12/03 0715 DC 12/03 IV 0804 Sodium Chloride 1,000 ML BOLUS ONE 12/03 0200 DC 12/03 IV 12/03 0259 0228 Sodium Chloride 1,000 ML BOLUS ONE 12/03 0200 DC 12/03 IV 12/03 0259 0322 Review of Systems Review of Systems Constitutional: Denies: chills, fever, weakness. Cardiovascular: Denies: chest pain, palpitations, peripheral edema. Respiratory: Denies: short of breath. GI: Reports: abdominal pain. Denies: bloating, diarrhea, melena, nausea, bloody stool, vomiting. Genitourinary: Denies: dysuria. Musculoskeletal: Denies: back pain. Skin: Denies: rash. Neurological/Psychological: Reports: confusion. Denies: anxiety, weakness. Hematologic/Endocrine: Denies: bruising, bleeding. Immunologic/Allergic: Denies: lymphadenopathy. All Other Systems: Reviewed and Negative Past History Travel History Traveled to [place] past 21 day No Medical History Blood Transfusion Hx: Yes Neurological: NONE EENT: NONE Cardiovascular: NONE Respiratory: NONE Gastrointestinal: NONE Hepatic: cirrhosis, hepatitis C, hepatic encephalopathy Renal: NONE Musculoskeletal: NONE Psychiatric: NONE Endocrine: diabetes Blood Disorders: NONE Cancer(s): NONE SAP DIRECTOR/Reproductive: NONE Surgical History Surgical History: non-contributory Psychosocial History Where Do You Live? Home Services at Home: None Smoking Status: Current Everyday Smoker Exam & Diagnostic Data Vital Signs and I&O Vital Signs Date Time Temp Pulse Resp B/P B/P Pulse O2 O2 Flow FiO2 Mean Ox Delivery Rate 12/03 1437 98.2 67 20 125/76 96 12/03 1056 88 122/80 12/03 0445 98.0 71 20 137/81 98 Room Air 12/03 0003 98.2 70 20 148/80 100 Room Air Intake & Output 12/03 1600 12/03 0800 12/03 0000 Intake Total 975 0 Output Total Balance 975 0 Intake, IV 375 Intake, Oral 600 0 Number 1 Bowel Movements Patient 79.832 kg Weight Weight Reported by Patient Measurement Method Physical Exam General Appearance: alert, awake, comfortable, thin Head: atraumatic Eyes: Bilateral: PERRL. Ears, Nose, Throat: normal pharynx Neck: normal inspection, no midline tenderness Respiratory: normal breath sounds, chest non-tender, no respiratory distress Cardiovascular: regular rate/rhythm Gastrointestinal: normal bowel sounds, soft, non-tender Back: normal inspection Extremities: no edema Neurologic/Psych: awake, alert, oriented x 3 Skin: warm/dry, spiders angiomas in chest Lymphatic: no anterior cervical wili Last 48 Hours of Lab Results: Laboratory Tests 12/03 12/03 12/03 1155 1155 0155 Chemistry Sodium (137 - 145 mmol/L) 137 Potassium (3.5 - 5.1 mmol/L) 3.5 Chloride (98 - 107 mmol/L) 108 H Carbon Dioxide (22 - 30 mmol/L) 21 L Anion Gap (5 - 16) 7 BUN (9 - 20 mg/dL) 12 Creatinine (0.7 - 1.2 mg/dL) 0.5 L Estimated GFR (>60 ml/min) > 60 BUN/Creatinine Ratio (7 - 25 %) 24.0 Hemoglobin A1c (4.2 - 5.8 %) Pending Ammonia (9 - 30 umol/L) 74 H Alpha Fetoprotein Cancelled Coagulation PT (9.4 - 12.5 SEC) 16.3 H INR (0.90 - 1.17) 1.56 H Hematology CBC w Diff MAN DIFF ORDERED WBC (4.8 - 10.8 /CUMM) 2.6 L RBC (4.70 - 6.10 /CUMM) 4.12 L Hgb (14.0 - 18.0 G/DL) 12.7 L Hct (42 - 52 %) 36.8 L MCV (80.0 - 94.0 FL) 89.3 MCH (27.0 - 31.0 PG) 30.9 RDW (11.5 - 14.5 %) 15.3 H Plt Count (130 - 400 /CUMM) 28 *L MPV (7.4 - 10.4 FL) 9.4 Gran % (42.2 - 75.2 %) 57.7 Lymphocytes % (20.5 - 51.1 %) 28.0 Monocytes % (1.7 - 9.3 %) 12.1 H Eosinophils % (0 - 5 %) 1.7 Basophils % (0.0 - 2.0 %) 0.5 Absolute Granulocytes (1.4 - 6.5 /CUMM) 1.5 Segmented Neutrophils (42.2 - 75.2 %) 53 Band Neutrophils (0.0 - 5.0 %) 2 Absolute Lymphocytes (1.2 - 3.4 /CUMM) 0.7 L Lymphocytes (20.5 - 51.1 %) 29 Monocytes (1.7 - 9.3 %) 13 H Absolute Monocytes (0.10 - 0.60 /CUMM) 0.3 Eosinophils (0 - 5.0 %) 3 Absolute Eosinophils (0.0 - 0.7 /CUMM) 0 Absolute Basophils (0.0 - 0.2 /CUMM) 0 Platelet Estimate (ADEQUATE) Normocytic RBCs VERIFIED Normochromic RBCs VERIFIED PUBS MCHC (33.0 - 37.0 G/DL) 34.7 Serology Hepatitis A IgM Ab (NONREACTIVE) NONREACTIVE Hep Bs Antigen (NONREACTIVE) NONREACTIVE Hep B Core IgM Ab Conf (NONREACTIVE) NONREACTIVE Hepatitis C Antibody (NONREACTIVE) REACTIVE H 12/03 0048 Toxicology Urine Opiates Screen (>2000 NG/ML) < 100.00 Methadone Screen (>300 NG/ML) < 40 Barbiturate Screen (>200 NG/ML) < 60 Ur Phencyclidine Scrn (>25 NG/ML) < 6.00 Amphetamines Screen (>1000 NG/ML) < 100 U Benzodiazepines Scrn (>200 NG/ML) < 85 Urine Cocaine Screen (>300 NG/ML) < 50 Urine Cannabis Screen (>50 NG/ML) < 5.00 Urines Urinalysis LIGHT H Urine Color (YEL,AMB,STR) YEL Urine Clarity (CLEAR) HAZY H Urine pH (5.0 - 8.0) 7.0 Ur Specific [place] (1.001 - 1.035) 1.015 Urine Protein (NEG,<30 MG/DL) NEG Urine Ketones (NEG) NEG Urine Nitrite (NEG) NEG Urine Bilirubin (NEG) NEG Urine Urobilinogen (0.1 - 1.0 EU/dl) 2.0 H Ur Leukocyte Esterase (NEG) TRACE H Ur Microscopic SEDIMENT EXAMINED Urine RBC (0 - 5 /HPF) 25-50 H Urine WBC (0 - 2 /HPF) 3-5 H Ur Epithelial Cells (NONE,FEW) RARE Urine Bacteria (NEG/NONE) FEW H Micro UA Comment Urine Hemoglobin (NEG) LARGE H Urine Glucose (N MG/DL) >=1000 H 12/03 0035 Chemistry Sodium (137 - 145 mmol/L) 140 Potassium (3.5 - 5.1 mmol/L) 3.7 Chloride (98 - 107 mmol/L) 110 H Carbon Dioxide (22 - 30 mmol/L) 22 Anion Gap (5 - 16) 8 BUN (9 - 20 mg/dL) 14 Creatinine (0.7 - 1.2 mg/dL) 0.5 L Estimated GFR (>60 ml/min) > 60 BUN/Creatinine Ratio (7 - 25 %) 28.0 H Glucose (65 - 99 mg/dL) 376 H Calcium (8.4 - 10.2 mg/dL) 9.1 Total Bilirubin (0.2 - 1.3 mg/dL) 2.0 H AST (17 - 59 U/L) 86 H ALT (21 - 72 U/L) 99 H Alkaline Phosphatase (< 127 U/L) 102 Troponin I (<0.11 ng/ml) < 0.01 Total Protein (6.3 - 8.2 g/dL) 6.1 L Albumin (3.5 - 5.0 g/dL) 2.7 L Globulin (1.9 - 4.2 gm/dL) 3.4 Albumin/Globulin Ratio (1.1 - 2.2 %) 0.8 L TSH (0.270 - 4.200 uIU/mL) 1.160 Thyroxine (T4) (4.5 - 10.9 ug/dL) 9.3 Thyroxine Binding Indx (23.5 - 40.5 % UPTAKE) 41.8 H Hematology CBC w Diff NO MAN DIFF REQ WBC (4.8 - 10.8 /CUMM) 3.7 L RBC (4.70 - 6.10 /CUMM) 4.41 L Hgb (14.0 - 18.0 G/DL) 13.4 L Hct (42 - 52 %) 38.8 L MCV (80.0 - 94.0 FL) 88.1 MCH (27.0 - 31.0 PG) 30.5 RDW (11.5 - 14.5 %) 15.3 H Plt Count (130 - 400 /CUMM) 49 L MPV (7.4 - 10.4 FL) 7.8 Gran % (42.2 - 75.2 %) 58.4 Lymphocytes % (20.5 - 51.1 %) 25.5 Monocytes % (1.7 - 9.3 %) 13.8 H Eosinophils % (0 - 5 %) 1.7 Basophils % (0.0 - 2.0 %) 0.6 Absolute Granulocytes (1.4 - 6.5 /CUMM) 2.1 Absolute Lymphocytes (1.2 - 3.4 /CUMM) 0.9 L Absolute Monocytes (0.10 - 0.60 /CUMM) 0.5 Absolute Eosinophils (0.0 - 0.7 /CUMM) 0.1 Absolute Basophils (0.0 - 0.2 /CUMM) 0 PUBS MCHC (33.0 - 37.0 G/DL) 34.7 Toxicology Salicylates (0 - 20.0 mg/dL) < 1.0 Acetaminophen (10.0 - 30.0 ug/mL) < 10.0 L Serum Alcohol (<10 MG/DL) < 10.0 Imaging/Other Studies: CT head 12/03/2016: The study is somewhat motion limited. There is no evidence of acute intracranial hemorrhage or territorial infarction. No abnormal mass effect or midline shift is seen. Dunlap to white matter differentiation is well preserved. No extra-axial fluid collections are identified. No hydrocephalus. No significant volume loss. There is no abnormal attenuation within the brain parenchyma. The osseous structures and soft tissues are normal. The mastoid air cells and visualized portions of the paranasal sinuses are well aerated. Assessment/Plan Assessment: Mr. Newby is a 41-year-old Kyrgy[place] male with chronic hepatitis C s/p treatment in [facility] over 10 years ago, cirrhosis with esophageal and gastric varices [facility], and DM on insulin who presented to [facility] for altered mental status. He was found to have elevated ammonia level and hepatic encephalopathy. His MELD score of 14. His mental status is improved now. He has no obvious signs of infections, portal vein thrombosis, bleeding, renal failure, or new medications. He was noted to have thrombocytopenia on blood work. This seems to be a chronic issue according to records available. His platelet count is 28,000 today. Peripheral blood smear was reviewed today and noted decreased platelet of normal size. Estimated count is 30-45,000. Thrombocytopenia is likely related to portal hypertension resulting in splenomegaly. No intervention is needed at the moment. Transfuse with platelet with platelet less than 10,000 or 20,000 with fever. If continues to drop, other etiology would be infectious (HCV?) and worsening liver disease. He should have AFP and US done to evaluate for HCC. Recommendations: 1. Check US abdomen (liver, portal vein, and spleen) 2. Check AFP 3. Check HCV viral titer 4. Ensure HIV has been checked Problem List: 1. Hepatitis C infection 2. Hepatic encephalopathy 3. Leukopenia 4. Thrombocytopenia 5. Cirrhosis 6. Diabetes mellitus Other Findings/Comments: Please call [phone] with any questions or concerns. Consult Acknowledgment - Thank you for your consult request.
--- NOTE | 2016-12-03 16:42 | NUR ---
PTS BLOOD GLUCOSE 378, POWER REACTOR SUPERVISOR JOSE PAGED. WILL ADMINISTER 12 UNITS FOR DINNER TIME COVERAGE. WILL CONTINUE TO MONITOR.
--- NOTE | 2016-12-03 21:18 | NUR ---
AT 2044, PTS BLOOD GLUCOSE 447. NIGHT CLUB MANAGER IMGE NOTIFIED. 5 UNITS NOVOLOG ACKNOWLEDGED AND SCHEDULED 10 UNITS LEVEMIR ADMINISTERED WELL. PER NIGHT CLUB MANAGER, TO RECHECK BG IN 2 HOURS. PT ASYMPOTMATIC. WILL CONTINUE TO MONITOR.
[2016-12-03 22:38] VITALS: BP 124/64
--- NOTE | 2016-12-03 22:38 | NUR ---
REASSESMENT OF PTS BLOOD GLUCOSE, 382. BULLDOZER PRESS OPERATOR IMGE NOTIFIED. PT TO BE NPO AT MIDNIGHT FOR U/S IN AM. Q6 ACCUCHECKS WILL BEGIN AT MIDNIGHT WELL INSULIN COVERAGE. PER BULLDOZER PRESS OPERATOR, NO NEED TO GIVE MORE INSULIN AT THIS TIME. WILL CONTINUE TO MONITOR.
[2016-12-04 07:29] VITALS: BP 130/76
--- NOTE | 2016-12-04 07:48 | PN- Housestaff ---
See Addendum Subjective Follow-up For: hepatic encephalopathy Subjective: pt has been walking around, not confused, asking for food, he just had ruq done. still getting lactulose and rifaximin. blood sugar has been high 272,[id number]. denies complains at this time, pt had 1 documented bm yesterday labs reviewed platelet 49-28-35 wbc 3.7-2.6-3.8 hb 13.4 - 12.7 - 14.1 t bili 2 - 1.7 ast 86 alt 99-97 I had a lengthy discussion with pt's and son who were appropriately concerned regarding his prognosis. According to them, he is still not at his baseline, and "acting like he is drunk" RUQ done, results pending, if no ascites, will dc rifaximin if OK with GI. Review of Systems Constitutional: Reports: see HPI. Objective Last 24 Hrs of Vital Signs/I&O Vital Signs Date Time Temp Pulse Resp B/P B/P Pulse O2 O2 Flow FiO2 Mean Ox Delivery Rate 12/04 0729 97.8 63 20 130/76 97 Room Air 12/03 2238 98.3 67 20 124/64 97 Room Air 12/03 1437 98.2 67 20 125/76 96 12/03 1056 88 122/80 Intake & Output 12/04 1600 12/04 0800 12/04 0000 Intake Total 800 Output Total Balance 800 Intake, Oral 800 Physical Exam General Appearance: Alert, Oriented X3, Cooperative, No Acute Distress Cardiovascular: Regular Rate, Normal S1, Normal S2, No Murmurs Lungs: Clear to Auscultation, Normal Air Movement Abdomen: Normal Bowel Sounds, Soft, No Tenderness Extremities: No Edema Current Medications: Current Medications Sig/Carlos Eduardo Start time Last Medication Dose Route Stop Time Status Admin Acetaminophen 650 MG Q6P PRN 12/03 0500 AC PO Diclofenac Sodium 1 ARYA 4 TIMES/DAY PRN 12/03 0700 AC TOP Insulin Aspart 0 TIDAC 12/04 1200 AC SC Insulin Aspart 12 UNITS ONCE ONE 12/04 0015 CAN SC 12/04 0016 Insulin Aspart 5 UNITS ONCE ONE 12/03 2045 DC 12/03 SC 12/03 Insulin Aspart 0 TIDAC 12/03 0800 DC 12/03 SC 1726 Insulin Detemir 10 UNITS QPM 12/03 2200 12/03 OK 2049 Insulin Human Regular 0 Q6 12/03 2359 DC 12/04 SC 0618 Lactulose 20 GM TID 12/03 1000 AC 12/03 PO 2136 Nadolol 20 MG DAILY 12/03 1000 AC 12/03 PO 1056 Pantoprazole Sodium 40 MG DAILY 12/03 0500 AC 12/03 IV 0516 Rifaximin 550 MG TID 12/03 1000 AC 12/03 PO 2136 Sodium Chloride 1,000 ML Q13H 12/03 0715 DC 12/03 IV 0804 Last 24 Hrs of Lab/Evaristo Results Last 24 Hrs of Labs/Mics: Laboratory Tests 12/04/16 0635: Anion Gap 7, Estimated GFR > 60, BUN/Creatinine Ratio 22.5, Total Bilirubin 1.7 H, Direct Bilirubin 0.4, AST 86 H, ALT 97 H, Alkaline Phosphatase 96, Total Protein 6.3, Albumin 2.8 L, CBC w Diff NO MAN DIFF REQ, RBC 4.57 L, MCV 88.4, MCH 30.8, RDW 15.5 H, MPV 8.7, Gran % 63.8, Lymphocytes % 24.0, Monocytes % 9.7 H, Eosinophils % 2.2, Basophils % 0.3, Absolute Granulocytes 2.4, Absolute Lymphocytes 0.9 L, Absolute Monocytes 0.4, Absolute Eosinophils 0.1, Absolute Basophils 0, PUBS MCHC 34.8 12/03/16 1155: Anion Gap 7, Estimated GFR > 60, BUN/Creatinine Ratio 24.0, Hemoglobin A1c Pending 12/03/16 1155: Alpha Fetoprotein Cancelled, PT 16.3 H, INR 1.56 H, CBC w Diff MAN DIFF ORDERED, RBC 4.12 L, MCV 89.3, MCH 30.9, RDW 15.3 H, MPV 9.4, Gran % 57.7, Lymphocytes % 28.0, Monocytes % 12.1 H, Eosinophils % 1.7, Basophils % 0.5, Absolute Granulocytes 1.5, Segmented Neutrophils 53, Band Neutrophils 2, Absolute Lymphocytes 0.7 L, Lymphocytes 29, Monocytes 13 H, Absolute Monocytes 0.3, Eosinophils 3, Absolute Eosinophils 0, Absolute Basophils 0, Platelet Estimate , Normocytic RBCs VERIFIED, Normochromic RBCs VERIFIED, PUBS MCHC 34.7, Hepatitis A IgM Ab NONREACTIVE, Hep Bs Antigen NONREACTIVE, Hep B Core IgM Ab Conf NONREACTIVE, Hepatitis C Antibody REACTIVE H Assessment/Plan Assessment: 41 yo Greenlandic speaking M smoker, with h/o T2DM, chronic Hep C (acquired > 10 yrs ago, Rx once a week injections for 1 yr) with thrombocytopenia, liver cirrhosis, esophageal varices and portal hypertension, coinfection with Hep B? 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 Patient was admitted to [facility] [place] (November 05 to ) for thrombocytopenia that was noted on blood work, associated with bleeding gums, weakness and weight loss of 60 lbs over 4 yrs. EGD done during the hospitalization showed large esophageal varices and gastritis, patient is scheduled to follow up with GI on December 09 at [place]. He has been initiated on nadolol. Pt's ammonia level on admission was 74 with calculated MELD score of 14, associated with 6% 3 month mortality. # Hepatic encephalopathy in the setting of chronic Hep C with cirrhosis # Pancytopenia most likely secondary to cirrhosis - No convincing evidence of bleeding or infection - HIV done last month was negative. - tylenol level < 10 - hepatitis panel (positive hep c, negative hep b and a) * Admit to [facility], fall precautions * Increase lactulose to 30 gm TID titrate up to 3-4 soft BM's per day * Rifaximin discontinued, RUQ negative for ascites * Appreciate GI consult, Dr Bains * Appreciate hematology consult, Dr. Rea Amador * Follow up GI at [place] on December 09. - Pt's GI is Dr. Martinez, pt's PCP is Dr. Norma Sheets * Continue nadolol 20 mg daily. * IV PPI. * Avoid opiates for pain meds * Follow RUQ US - no mass and ascites * Follow AFP for HCC # T2DM * Accucheks and high dose novolog ss, bedtime ss, levemir - inc levemir to 100 bid * CC3 diet * hba1c pending * Pt's does not know what dose of insulin he takes at home * consider endo consult Diet: CC3 DVT ppx Alps. NO HEPARIN DUE TO THROMBOCYTOPENIA Full code. Problem List: 1. Hepatic encephalopathy Pain Ratin Pain Location: none Pain Goal: Remain pain free Pain Plan: none Tomorrow's Labs & Rationales: none DVT/Prophylaxis: mechanical
[2016-12-04 07:56] LABS: ABSOLUTE BASOPHIL COUNT 0 /CUMM (0.0-0.2); ABSOLUTE EOSINOPHIL COUNT 0.1 /CUMM (0.0-0.7); ABSOLUTE GRANULOCYTE CT 2.4 /CUMM (1.4-6.5); ABSOLUTE LYMPH COUNT 0.9 /CUMM (1.2-3.4); ABSOLUTE MONOCYTE COUNT 0.4 /CUMM (0.10-0.60); BASOPHIL % 0.3 % (0.0-2.0); EOSINOPHIL % 2.2 % (0-5); GRANULOCYTE % 63.8 % (42.2-75.2); HEMATOCRIT 40.3 % (42-52); MEAN CORPUSCULAR HGB 30.8 PG (27.0-31.0); MEAN CORPUSCULAR HGB CONC 34.8 G/DL (33.0-37.0); MEAN CORPUSCULAR VOLUME 88.4 FL (80.0-94.0); MEAN PLATELET VOLUME 8.7 FL (7.4-10.4); RBC DISTRIBUTION WIDTH 15.5 % (11.5-14.5); RED BLOOD CELL CT 4.57 /CUMM (4.70-6.10); WHITE BLOOD CELL COUNT 3.8 /CUMM (4.8-10.8)
[2016-12-04 08:55] LABS: PLATELET COUNT 35 /CUMM (130-400)
--- NOTE | 2016-12-04 08:56 | NUR ---
PT LEFT FLOOR VIA STRETCHER TO US.
--- NOTE | 2016-12-04 11:55 | NUR ---
PT BS >500, ADMINISTERED 14UNITS OF MD BENNIE ERNSTI AWARE, WILL CONTINUE TO MONITOR.
--- NOTE | 2016-12-04 12:28 | ULTRASOUND REPORT ---
EXAMINATION: US ABDOMEN LIMITED CLINICAL INFORMATION: Decompensated cirrhosis. Hepatic encephalopathy.. COMPARISON: None TECHNIQUE: Real-time imaging of the right upper quadrant abdominal viscera. FINDINGS: PANCREAS: The pancreas is partially obscured by bowel gas. The visualized portions of the pancreatic head, neck and body are unremarkable. There is hepatofugal flow within the visualized splenic vein, which measures 1.5 cm diameter. LIVER: The liver has diffusely coarse, heterogeneous echotexture and nodular surface contour, consistent with history of cirrhosis. The right hepatic lobe is 17.7 cm in length. No sonographic evidence of hepatic mass or intrahepatic bile duct dilatation. Note that Doppler imaging of hepatic and portal veins was not performed on this routine, limited exam. GALLBLADDER: The gallbladder is underdistended. No evidence of cholelithiasis or polyps. Gallbladder wall is 0.3 cm thick. No pericholecystic fluid. COMMON BILE DUCT: Normal in caliber measuring 0.6 cm in diameter. RIGHT KIDNEY: Normal. No hydronephrosis. No renal calculi or focal parenchymal lesions. The kidney measures 12.2 cm in maximum dimension. FREE FLUID: None. IMPRESSION: 1. Cirrhosis without sonographic evidence of hepatoma or ascites. 2. Hepatofugal flow is noted within the visualized, dilated splenic vein. If deemed clinically appropriate, consider obtaining duplex Doppler imaging of the hepatic and portal vessels. 3. Mild gallbladder wall thickening is likely reactive to the hepatic disease. No cholelithiasis.
--- NOTE | 2016-12-04 13:01 | NUR ---
RECHECKED PT BS 473, MD CRAFT AWARE, ADMINISTERED 5 UNITS OF NOVOLOG AND 10 UNITS OF LEVEMIR PER ORDER, WILL RECHECK BS AND CONTINUE TO MONITOR.
--- NOTE | 2016-12-04 13:22 | PN- Gastroenterology ---
Assessment/Plan Assessment/Recommendations: In summary we have a 41-year-old man with known hepatitis C cirrhosis and esophageal varices presenting with confusion. The confusion has a clinical characteristics of hepatic encephalopathy. Patient was seen in the presence of his son and his . The son helped with translation. Patient feels that the encephalopathy has improved. however still thinks that he is not thinking clearly and that his speech is slurred. Difficult to assess by me patient does appear alert sitting in a chair. No asterixis. 1. Hepatic encephalopathy. Patient has been started on lactulose. I have explained to daughter and that the patient needs to take lactulose to obtain 3-4 bowel movements a day. I have told them that they can vary the dosage to the desired effect. Please increase lactulose to 30 g 3 times a day. Please stop rifaximin 2. No evidence of renal failure. No need for additional hydration or albumin. 3. No ascites on ultrasound. 4. No signs infection.. 5. 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 2 continue nadolol. Patient needs to be given a appointment with his [place] ldr rn upon discharge. needs to start hepatitis C therapy as soon as possible. Subjective Subjective: x Objective Vital Signs and I&Os Vital Signs Date Time Temp Pulse Resp B/P B/P Pulse O2 O2 Flow FiO2 Mean Ox Delivery Rate 12/04 0940 63 130/76 12/04 0729 97.8 63 20 130/76 97 Room Air 12/03 2238 98.3 67 20 124/64 97 Room Air 12/03 1437 98.2 67 20 125/76 96 Intake & Output 12/04 1600 12/04 0400 12/03 0400 12/02 0400 Intake Total 800 975 0 Output Total Balance 800 975 0 Intake, IV 375 Intake, Oral 800 600 0 Number 1 Bowel Movements Patient 176 lb 176 lb Weight Weight Reported by Patient Measurement Method Results Pertinent Lab Results: Laboratory Tests 12/04 12/03 0635 1155 Chemistry Sodium (137 - 145 mmol/L) 138 137 Potassium (3.5 - 5.1 mmol/L) 3.9 3.5 Chloride (98 - 107 mmol/L) 107 108 H Carbon Dioxide (22 - 30 mmol/L) 24 21 L Anion Gap (5 - 16) 7 7 BUN (9 - 20 mg/dL) 9 12 Creatinine (0.7 - 1.2 mg/dL) 0.4 L 0.5 L Estimated GFR (>60 ml/min) > 60 > 60 BUN/Creatinine Ratio (7 - 25 %) 22.5 24.0 Hemoglobin A1c (4.2 - 5.8 %) Pending Total Bilirubin (0.2 - 1.3 mg/dL) 1.7 H Direct Bilirubin (< 0.4 mg/dL) 0.4 AST (17 - 59 U/L) 86 H ALT (21 - 72 U/L) 97 H Alkaline Phosphatase (< 127 U/L) 96 Total Protein (6.3 - 8.2 g/dL) 6.3 Albumin (3.5 - 5.0 g/dL) 2.8 L Hematology CBC w Diff NO MAN DIFF REQ WBC (4.8 - 10.8 /CUMM) 3.8 L RBC (4.70 - 6.10 /CUMM) 4.57 L Hgb (14.0 - 18.0 G/DL) 14.1 Hct (42 - 52 %) 40.3 L MCV (80.0 - 94.0 FL) 88.4 MCH (27.0 - 31.0 PG) 30.8 RDW (11.5 - 14.5 %) 15.5 H Plt Count (130 - 400 /CUMM) 35 L MPV (7.4 - 10.4 FL) 8.7 Gran % (42.2 - 75.2 %) 63.8 Lymphocytes % (20.5 - 51.1 %) 24.0 Monocytes % (1.7 - 9.3 %) 9.7 H Eosinophils % (0 - 5 %) 2.2 Basophils % (0.0 - 2.0 %) 0.3 Absolute Granulocytes (1.4 - 6.5 /CUMM) 2.4 Absolute Lymphocytes (1.2 - 3.4 /CUMM) 0.9 L Absolute Monocytes (0.10 - 0.60 /CUMM) 0.4 Absolute Eosinophils (0.0 - 0.7 /CUMM) 0.1 Absolute Basophils (0.0 - 0.2 /CUMM) 0 PUBS MCHC (33.0 - 37.0 G/DL) 34.8 12/03 12/03 1155 0155 Chemistry Ammonia (9 - 30 umol/L) 74 H Alpha Fetoprotein Cancelled Coagulation PT (9.4 - 12.5 SEC) 16.3 H INR (0.90 - 1.17) 1.56 H Hematology CBC w Diff MAN DIFF ORDERED WBC (4.8 - 10.8 /CUMM) 2.6 L RBC (4.70 - 6.10 /CUMM) 4.12 L Hgb (14.0 - 18.0 G/DL) 12.7 L Hct (42 - 52 %) 36.8 L MCV (80.0 - 94.0 FL) 89.3 MCH (27.0 - 31.0 PG) 30.9 RDW (11.5 - 14.5 %) 15.3 H Plt Count (130 - 400 /CUMM) 28 *L MPV (7.4 - 10.4 FL) 9.4 Gran % (42.2 - 75.2 %) 57.7 Lymphocytes % (20.5 - 51.1 %) 28.0 Monocytes % (1.7 - 9.3 %) 12.1 H Eosinophils % (0 - 5 %) 1.7 Basophils % (0.0 - 2.0 %) 0.5 Absolute Granulocytes (1.4 - 6.5 /CUMM) 1.5 Segmented Neutrophils (42.2 - 75.2 %) 53 Band Neutrophils (0.0 - 5.0 %) 2 Absolute Lymphocytes (1.2 - 3.4 /CUMM) 0.7 L Lymphocytes (20.5 - 51.1 %) 29 Monocytes (1.7 - 9.3 %) 13 H Absolute Monocytes (0.10 - 0.60 /CUMM) 0.3 Eosinophils (0 - 5.0 %) 3 Absolute Eosinophils (0.0 - 0.7 /CUMM) 0 Absolute Basophils (0.0 - 0.2 /CUMM) 0 Platelet Estimate (ADEQUATE) Normocytic RBCs VERIFIED Normochromic RBCs VERIFIED PUBS MCHC (33.0 - 37.0 G/DL) 34.7 Serology Hepatitis A IgM Ab (NONREACTIVE) NONREACTIVE Hep Bs Antigen (NONREACTIVE) NONREACTIVE Hep B Core IgM Ab Conf (NONREACTIVE) NONREACTIVE Hepatitis C Antibody (NONREACTIVE) REACTIVE H 12/03 0048 Toxicology Urine Opiates Screen (>2000 NG/ML) < 100.00 Methadone Screen (>300 NG/ML) < 40 Barbiturate Screen (>200 NG/ML) < 60 Ur Phencyclidine Scrn (>25 NG/ML) < 6.00 Amphetamines Screen (>1000 NG/ML) < 100 U Benzodiazepines Scrn (>200 NG/ML) < 85 Urine Cocaine Screen (>300 NG/ML) < 50 Urine Cannabis Screen (>50 NG/ML) < 5.00 Urines Urinalysis LIGHT H Urine Color (YEL,AMB,STR) YEL Urine Clarity (CLEAR) HAZY H Urine pH (5.0 - 8.0) 7.0 Ur Specific [place] (1.001 - 1.035) 1.015 Urine Protein (NEG,<30 MG/DL) NEG Urine Ketones (NEG) NEG Urine Nitrite (NEG) NEG Urine Bilirubin (NEG) NEG Urine Urobilinogen (0.1 - 1.0 EU/dl) 2.0 H Ur Leukocyte Esterase (NEG) TRACE H Ur Microscopic SEDIMENT EXAMINED Urine RBC (0 - 5 /HPF) 25-50 H Urine WBC (0 - 2 /HPF) 3-5 H Ur Epithelial Cells (NONE,FEW) RARE Urine Bacteria (NEG/NONE) FEW H Micro UA Comment Urine Hemoglobin (NEG) LARGE H Urine Glucose (N MG/DL) >=1000 H 12/03 0035 Chemistry Sodium (137 - 145 mmol/L) 140 Potassium (3.5 - 5.1 mmol/L) 3.7 Chloride (98 - 107 mmol/L) 110 H Carbon Dioxide (22 - 30 mmol/L) 22 Anion Gap (5 - 16) 8 BUN (9 - 20 mg/dL) 14 Creatinine (0.7 - 1.2 mg/dL) 0.5 L Estimated GFR (>60 ml/min) > 60 BUN/Creatinine Ratio (7 - 25 %) 28.0 H Glucose (65 - 99 mg/dL) 376 H Calcium (8.4 - 10.2 mg/dL) 9.1 Total Bilirubin (0.2 - 1.3 mg/dL) 2.0 H AST (17 - 59 U/L) 86 H ALT (21 - 72 U/L) 99 H Alkaline Phosphatase (< 127 U/L) 102 Troponin I (<0.11 ng/ml) < 0.01 Total Protein (6.3 - 8.2 g/dL) 6.1 L Albumin (3.5 - 5.0 g/dL) 2.7 L Globulin (1.9 - 4.2 gm/dL) 3.4 Albumin/Globulin Ratio (1.1 - 2.2 %) 0.8 L TSH (0.270 - 4.200 uIU/mL) 1.160 Thyroxine (T4) (4.5 - 10.9 ug/dL) 9.3 Thyroxine Binding Indx (23.5 - 40.5 % UPTAKE) 41.8 H Hematology CBC w Diff NO MAN DIFF REQ WBC (4.8 - 10.8 /CUMM) 3.7 L RBC (4.70 - 6.10 /CUMM) 4.41 L Hgb (14.0 - 18.0 G/DL) 13.4 L Hct (42 - 52 %) 38.8 L MCV (80.0 - 94.0 FL) 88.1 MCH (27.0 - 31.0 PG) 30.5 RDW (11.5 - 14.5 %) 15.3 H Plt Count (130 - 400 /CUMM) 49 L MPV (7.4 - 10.4 FL) 7.8 Gran % (42.2 - 75.2 %) 58.4 Lymphocytes % (20.5 - 51.1 %) 25.5 Monocytes % (1.7 - 9.3 %) 13.8 H Eosinophils % (0 - 5 %) 1.7 Basophils % (0.0 - 2.0 %) 0.6 Absolute Granulocytes (1.4 - 6.5 /CUMM) 2.1 Absolute Lymphocytes (1.2 - 3.4 /CUMM) 0.9 L Absolute Monocytes (0.10 - 0.60 /CUMM) 0.5 Absolute Eosinophils (0.0 - 0.7 /CUMM) 0.1 Absolute Basophils (0.0 - 0.2 /CUMM) 0 PUBS MCHC (33.0 - 37.0 G/DL) 34.7 Toxicology Salicylates (0 - 20.0 mg/dL) < 1.0 Acetaminophen (10.0 - 30.0 ug/mL) < 10.0 L Serum Alcohol (<10 MG/DL) < 10.0
[2016-12-04 14:18] VITALS: BP 145/82
--- NOTE | 2016-12-04 14:30 | NUR ---
RECHECKED PT BS @ 372, MD KING AWARE. WILL CONTINUE TO MONITOR.
[2016-12-04 22:21] VITALS: BP 124/70
[2016-12-05 06:48] VITALS: BP 118/64
--- NOTE | 2016-12-05 07:14 | PN- Housestaff ---
LUANA QUIÑONEZ,JOSE 12/05/16 0714: Subjective Follow-up For: hepatic encephalopathy Subjective: patient was alert orientedX3, reports that he is comfortable going home today and will follow up with his PCP and GI in [place]. Had about 1 bm daily. blood sugar has been high - 276, 344, 433, 370, 425, 372. obtaiined endocrinology consult Review of Systems Constitutional: Reports: see HPI. Objective Last 24 Hrs of Vital Signs/I&O Vital Signs Date Time Temp Pulse Resp B/P B/P Pulse O2 O2 Flow FiO2 Mean Ox Delivery Rate 12/05 0937 71 118/64 12/05 0648 98.1 71 20 118/64 98 Room Air 12/04 2221 98.5 62 20 124/70 97 Room Air 12/04 1418 98.2 99 20 145/82 97 Intake & Output 12/05 1600 12/05 0800 12/05 0000 Intake Total 360 600 Output Total Balance 360 600 Intake, Oral 360 600 Physical Exam General Appearance: Alert, Oriented X3, Cooperative, No Acute Distress Cardiovascular: Regular Rate, Normal S1, Normal S2 Lungs: Clear to Auscultation, Normal Air Movement Abdomen: Normal Bowel Sounds, Soft, No Tenderness, no ascites Extremities: No Edema Current Medications: Current Medications Sig/Carlos Eduardo Start time Last Medication Dose Route Stop Time Status Admin Acetaminophen 650 MG Q6P PRN 12/03 0500 AC PO Diclofenac Sodium 1 ARYA 4 TIMES/DAY PRN 12/03 0700 AC TOP Insulin Aspart 0 AT BEDTIME 12/04 2200 AC 12/04 NC 2137 Insulin Aspart 5 UNITS ONCE ONE 12/04 1245 DC 12/04 NC 12/04 1246 1258 Insulin Aspart 0 TIDAC 12/04 1200 AC 12/05 NC 0841 Insulin Detemir 10 UNITS BID 12/04 2200 VA SC Insulin Detemir 15 UNITS BID 12/04 2200 AC 12/05 NC 1001 Insulin Detemir 10 UNITS ONCE ONE 12/04 1245 DC 12/04 NC 12/04 1246 1258 Insulin Detemir 10 UNITS QPM 12/03 2200 VA 12/03 NC 2049 Lactulose 30 GM TID 12/05 1600 AC PO Lactulose 30 GM Q6 12/05 1200 CAN PO Lactulose 30 GM TID 12/04 1600 DC 12/05 PO 0937 Nadolol 20 MG DAILY 12/03 1000 AC 12/05 PO 0937 Pantoprazole Sodium 40 MG DAILY 12/03 0500 AC 12/05 IV 0937 Rifaximin 550 MG TID 12/03 1000 DC 12/04 PO 0939 Last 24 Hrs of Lab/Evaristo Results Last 24 Hrs of Labs/Mics: Laboratory Tests 12/05/16 0851: Ammonia Pending 12/05/16 0720: CBC w Diff NO MAN DIFF REQ, RBC 4.48 L, MCV 89.6, MCH 30.9, RDW 15.0 H, MPV 7.8, Gran % 69.8, Lymphocytes % 20.4 L, Monocytes % 7.2, Eosinophils % 2.1, Basophils % 0.5, Absolute Granulocytes 3.3, Absolute Lymphocytes 1.0 L, Absolute Monocytes 0.3, Absolute Eosinophils 0.1, Absolute Basophils 0, PUBS MCHC 34.5 Assessment/Plan Assessment: 41 yo Turkish speaking M smoker, with h/o T2DM, chronic Hep C (acquired > 10 yrs ago, s/p Rx -ifn? once a week injections for 1 yr), coinfection with Hep B? (hep b s antigen checked this admission was negative), thrombocytopenia, liver cirrhosis, esophageal varices and portal hypertension, who is visiting from [place] is brought in by family for increasing lethargy and confusion for the past 24 hours [employer], described by his as "acting as if he is drunk", while the patient describes it as "memory loss". Of note, patient was admitted to [facility] @ [place] (November 05 to ) for thrombocytopenia that was noted on blood work, associated with bleeding gums , weakness and weight loss of 60 lbs over 4 yrs. EGD done during the hospitalization showed large esophageal varices and gastritis, patient is scheduled to follow up with GI on December 09 at [place]. He has been initiated on nadolol. Pt's ammonia level on admission was 74 with calculated MELD score of 14, associated with 6% 3 month mortality. He received lactulose and rifaximin with improvement in mental status and memory. He responded appropriately to questions and will be discharged on lactulose, patient instructed to follow up with his PCP and GI in [place]. # Hepatic encephalopathy in the setting of chronic Hep C with cirrhosis # Pancytopenia most likely secondary to cirrhosis - No convincing evidence of bleeding or infection - HIV done last month was negative. - tylenol level < 10 - hepatitis panel (positive hep c, negative hepbsag and hep a) - RUQ negative for ascites and mass * Admit to GM, fall precautions * Continue lactulose to 30 gm TID discharge on the same * Rifaximin has been discontinued * Appreciate GI consult, Dr Bains * Appreciate hematology consult, Dr. Rea Amador * Follow up GI at [place] on December 09. - Pt's GI is Dr. Martinez, pt's PCP is Dr. Norma Sheets * Continue nadolol 20 mg daily. * IV PPI, discharge on home PPI * Follow AFP for HCC # T2DM - Pt's blood sugar in 300-500 range while in hospital. Reports accucheck tends to be in 300s at home. Pt's does not know what dose of insulin he takes at home * Accucheks and high dose novolog ss, bedtime ss, levemir - inc levemir to 15 BID * hba1c pending * Endocrinology was consulted Diet: CC3 DVT ppx Alps. NO HEPARIN DUE TO THROMBOCYTOPENIA Full code. Problem List: 1. Hepatic encephalopathy Pain Ratin Pain Location: none Pain Goal: Remain pain free Pain Plan: none Tomorrow's Labs & Rationales: none DVT/Prophylaxis: mechanical, pharmacological JOVANNY CROUCH 12/05/16 1200: Attending MD Review Statement Attending Statement Attending MD Statement: examined this patient, discuss w/resident/PA/LABOR ARBITRATOR, agreed w/resident/PA/LABOR ARBITRATOR, discussed with family, reviewed EMR data (avail), discussed with nursing, discussed with case mgmt, reviewed images, amended to note Attending Assessment/Plan: 41 o/m with pmh of ASSESSMENT 1. Chronic Hepatitis C 2. Cirrhosis 3. Hepatic encephalopathy 4. alcohol abuse in past 5. Thrombocytopenia 6. Mild elevated LFTs with hyperammonemia 7. Alpha fetoprotein pending 8. Jaundice PLAN admitted to inpatient medical services GI consulted , recommend lactulose, stop rifaximin encephalopathy clearing on lactulose, clinically improving. Plat count stable, no ascites. c/w home meds nadolol for varices. f/u GI o/p in [place]. Patient said he will make his appointment. Patient medically stable for discharge.
[2016-12-05 08:41] LABS: ABSOLUTE BASOPHIL COUNT 0 /CUMM (0.0-0.2); ABSOLUTE EOSINOPHIL COUNT 0.1 /CUMM (0.0-0.7); ABSOLUTE GRANULOCYTE CT 3.3 /CUMM (1.4-6.5); EOSINOPHIL % 2.1 % (0-5); WHITE BLOOD CELL COUNT 4.7 /CUMM (4.8-10.8)
--- NOTE | 2016-12-05 08:44 | PN- Hematology ---
Subjective Subjective: He denies any new symptoms. Review of Systems: Limited due to language barrier. Constitutional: Denies: chills, fever, weakness. Cardiovascular: Denies: chest pain, palpitations, peripheral edema. Respiratory: Denies: short of breath. GI: Denies: bloating, diarrhea, melena, nausea, bloody stool, vomiting. Musculoskeletal: Denies: back pain. Neurological/Psychological: Denies: anxiety, weakness, confusion All Other Systems: Reviewed and Negative Objective Vital Signs and I&Os Vital Signs Date Time Temp Pulse Resp B/P B/P Pulse O2 O2 Flow FiO2 Mean Ox Delivery Rate 12/06 647 98.1 71 20 118/64 98 Room Air 12/04 2221 98.5 62 20 124/70 97 Room Air 12/04 1418 98.2 99 20 145/82 97 12/04 0940 63 130/76 Intake & Output 12/05 1600 12/05 0800 12/05 0000 12/04 1600 12/04 0800 12/04 0000 Intake Total 360 600 480 800 Output Total Balance 360 600 480 800 Intake, Oral 360 600 480 800 Number 0 Bowel Movements Physical Exam: General Appearance: alert, awake, comfortable, thin Respiratory: normal breath sounds, chest non-tender, no respiratory distress Cardiovascular: regular rate/rhythm Gastrointestinal: normal bowel sounds, soft, non-tender Extremities: no edema Neurologic/Psych: awake, alert, oriented x 3, no asterixis Skin: warm/dry, spiders angiomas in chest Lymphatic: no anterior cervical wili Current Medications: Current Medications Sig/Carlos Eduardo Start time Last Medication Dose Route Stop Time Status Admin Acetaminophen 650 MG Q6P PRN 12/03 0500 AC PO Diclofenac Sodium 1 ARYA 4 TIMES/DAY PRN 12/03 0700 TOP Insulin Aspart 0 AT BEDTIME 12/04 2200 AC 12/04 MN 2137 Insulin Aspart 5 UNITS ONCE ONE 12/04 1245 AL 12/04 MN 12/04 1246 1258 Insulin Aspart 0 TIDAC 12/04 1200 AC 12/04 MN 1627 Insulin Detemir 10 UNITS BID 12/04 2200 [facility] Insulin Detemir 15 UNITS BID 12/04 2200 12/04 MN 2137 Insulin Detemir 10 UNITS ONCE ONE 12/04 1245 AL 12/04 MN 12/04 1246 1258 Insulin Detemir 10 UNITS QPM 12/03 2200 DC 12/03 SC 2049 Insulin Human Regular 0 Q6 12/03 2359 DC 12/04 SC 0618 Lactulose 30 GM TID 12/04 1600 AC 12/04 PO 2138 Lactulose 20 GM TID 12/03 1000 DC 12/04 PO 0939 Nadolol 20 MG DAILY 12/03 1000 AC 12/04 PO 0940 Pantoprazole Sodium 40 MG DAILY 12/03 0500 AC 12/04 IV 0939 Rifaximin 550 MG TID 12/03 1000 DC 12/04 PO 0939 Results Last 24 Hours of Lab Results: Laboratory Tests 12/05 0720 Hematology CBC w Diff Pending WBC Pending RBC Pending Hgb Pending Hct Pending MCV Pending MCH Pending RDW Pending Plt Count Pending MPV Pending PUBS MCHC Pending Assessment/Plan Assessment/Recommendations: Mr. Newby is a 41-year-old Upper Sorbian male with chronic hepatitis C s/p treatment in [facility] over 10 years ago, cirrhosis with esophageal and gastric varices on recent EGD in [facility], and DM on insulin who presented to [facility] for altered mental status. He was found to have elevated ammonia level and hepatic encephalopathy. His MELD score was 14. Mental status has improved. He has no evidence of infections, portal vein thrombosis, bleeding, renal failure, or new medications. Thrombocytopenia seems to be stable. Thrombocytopenia is likely related to portal hypertension resulting in splenomegaly. No intervention is needed at the moment. US was negative for HCC. Recommendations: 1. Follow up AFP 2. Monitor CBC 3. Follow GI/Hepatology recommendations and as outpatient Please call [phone] with any questions. Problem List: 1. Hepatic encephalopathy 2. Thrombocytopenia 3. Cirrhosis 4. Hepatitis C infection 5. Diabetes mellitus 6. Leukopenia
[2016-12-05 09:36] LABS: ABSOLUTE MONOCYTE COUNT 0.3 /CUMM (0.10-0.60); BASOPHIL % 0.5 % (0.0-2.0); GRANULOCYTE % 69.8 % (42.2-75.2); HEMATOCRIT 40.1 % (42-52); MEAN CORPUSCULAR HGB 30.9 PG (27.0-31.0); MEAN CORPUSCULAR HGB CONC 34.5 G/DL (33.0-37.0); MEAN CORPUSCULAR VOLUME 89.6 FL (80.0-94.0); MEAN PLATELET VOLUME 7.8 FL (7.4-10.4); RED BLOOD CELL CT 4.48 /CUMM (4.70-6.10)
[2016-12-05] MEDS ORDERED: LACTULOSE20 GM/30 M PO (11:01)
--- NOTE | 2016-12-05 11:03 | Patient Discharge Instructions ---
Discharge Instructions General Discharge Information You were seen/treated for: Hepatic encephalopathy Special Instructions: Please follow up with your PCP Dr. Norma Sheets, GI is Dr. Martinez in 1 week. Diet Continue normal diet: Yes Recommended Diet: Diabetic Activity Full Activity/No Limits: Yes Acute Coronary Syndrome Inclusion Criteria At DC or during hospital stay patient has or had the following: ACS DIAGNOSIS No Discharge Core Measures Meds if any: Prescribed or Continued at Discharge Meds if any: NOT Prescribed or Continued at Discharge Congestive Heart Failure Inclusion Criteria At DC or during hospital stay patient has or had the following: CHF DIAGNOSIS No Discharge Core Measures Meds if any: Prescribed or Continued at Discharge Meds if any: NOT Prescribed or Continued at Discharge Cerebrovascular accident Inclusion Criteria At DC or during hospital stay patient has or had the following: CVA/TIA Diagnosis No Discharge Core Measures Meds if any: Prescribed or Continued at Discharge Meds if any: NOT Prescribed or Continued at Discharge Venous thromboembolism Inclusion Criteria VTE Diagnosis No VTE Type NONE VTE Confirmed by (Test) NONE Discharge Core Measures - Per Current guidelines, there needs to be overlap - treatment for the first 5 days of Warfarin therapy. - If discharged on Warfarin prior to 5 days of - overlap therapy, the patient will need to be - assessed for post discharge needs including - *Post discharge parental anticoagulation - *Warfarin and/or parental anticoagulation education - *Follow up date to check INR post discharge At least 5 days overlap therapy as Inpatient No Meds if any: Prescribed or Continued at Discharge Note: Overlap Therapy is Warfarin and Anticoagulant Meds if any: NOT Prescribed or Continued at Discharge
--- NOTE | 2016-12-05 11:09 | Discharge Summary ---
Visit Information Visit Dates Admission Date: 12/03/16 Discharge Date: 12/05/16 Hospital Course Course Attending Physician: WILLA QUIÑONEZ,JOVANNY Primary Care Physician: PCP Dr. Norma Sheets, GI is Dr. Martinez in [place] Hospital Course: 41 yo Fijian speaking M smoker, with h/o T2DM, chronic Hep C (acquired > 10 yrs ago, s/p Rx -ifn? once a week injections for 1 yr), coinfection with Hep B? (hep b s antigen checked this admission was negative), thrombocytopenia, liver cirrhosis, esophageal varices and portal hypertension, who is visiting from [place] is brought in by family for increasing lethargy and confusion for the past 24 hours [employer], described by his as "acting as if he is drunk", while the patient describes it as "memory loss". Of note, patient was admitted to [facility] @ [place] (November 05 to ) for thrombocytopenia that was noted on blood work, associated with bleeding gums , weakness and weight loss of 60 lbs over 4 yrs. EGD done during the hospitalization showed large esophageal varices and gastritis, patient is scheduled to follow up with GI on December 09 at [place]. He has been initiated on nadolol. Pt's ammonia level on admission was 74 with calculated MELD score of 14, associated with 6% 3 month mortality. He received lactulose and rifaximin with improvement in mental status and memory. He responded appropriately to questions and will be discharged on lactulose, patient instructed to follow up with his PCP and GI in [place]. Pt will be able to get his lactulose filled, however his insurance would not cover the insulin we are discharging him on. Told patient to take his current home insulin until he can get the new insulin regimen filled tomorrow. He plans to go back to [place] tomorrow. # Hepatic encephalopathy in the setting of chronic Hep C with cirrhosis # Pancytopenia most likely secondary to cirrhosis - No convincing evidence of bleeding or infection - HIV done last month was negative. - Tylenol level < 10 - hepatitis panel (positive hep c, negative hepbsag and hep a) - RUQ negative for ascites and mass * Admitted to general medicine * Discharge on lactulose to 30 gm TID for 7 days * Appreciate GI consult, Dr Bains * Appreciate hematology consult, Dr. Andrei Amador * Follow up GI at [place] on December 09. - Pt's GI is Dr. Martinez, pt's PCP is Dr. Norma Sheets * Continue nadolol 20 mg daily. * IV PPI received inpatient, discharge on home PPI * Follow AFP for HCC # T2DM - Pt's blood sugar in 300-500 range while in hospital. Reports accucheck tends to be in 300s at home. Pt's does not know what dose of insulin he takes at home * Accucheks and high dose novolog ss, bedtime ss, levemir - inc levemir to 15 BID * hba1c pending * Endocrinology, Dr. Gomez was consulted Diet: CC3 DVT ppx Alps. NO HEPARIN DUE TO THROMBOCYTOPENIA Full code. Allergies: Coded Allergies: No Known Allergies (12/03/16) Significant Procedures: Hba1c PENDING Ammonia level on admission 74 Hepatitis panel negative for hbsag, positive hep c ab EXAMINATION: US ABDOMEN LIMITED CLINICAL INFORMATION: Decompensated cirrhosis. Hepatic encephalopathy.. COMPARISON: None TECHNIQUE: Real-time imaging of the right upper quadrant abdominal viscera. FINDINGS: PANCREAS: The pancreas is partially obscured by bowel gas. The visualized portions of the pancreatic head, neck and body are unremarkable. There is hepatofugal flow within the visualized splenic vein, which measures 1.5 cm diameter. LIVER: The liver has diffusely coarse, heterogeneous echotexture and nodular surface contour, consistent with history of cirrhosis. The right hepatic lobe is 17.7 cm in length. No sonographic evidence of hepatic mass or intrahepatic bile duct dilatation. Note that Doppler imaging of hepatic and portal veins was not performed on this routine, limited exam. GALLBLADDER: The gallbladder is underdistended. No evidence of cholelithiasis or polyps. Gallbladder wall is 0.3 cm thick. No pericholecystic fluid. COMMON BILE DUCT: Normal in caliber measuring 0.6 cm in diameter. RIGHT KIDNEY: Normal. No hydronephrosis. No renal calculi or focal parenchymal lesions. The kidney measures 12.2 cm in maximum dimension. FREE FLUID: None. IMPRESSION: 1. Cirrhosis without sonographic evidence of hepatoma or ascites. 2. Hepatofugal flow is noted within the visualized, dilated splenic vein. If deemed clinically appropriate, consider obtaining duplex Doppler imaging of the hepatic and portal vessels. 3. Mild gallbladder wall thickening is likely reactive to the hepatic disease. No cholelithiasis. DICTATED BY: EVIE BERGERON MD DATE/TIME DICTATED:12/04/161217 CT HEAD WITHOUT CONTRAST CLINICAL INFORMATION: Altered mental status. Trauma. COMPARISON: None. TECHNIQUE: Contiguous axial imaging was performed from the skull base to vertex without intravenous contrast. DLP: 648 mGy-cm. FINDINGS: The study is somewhat motion limited. There is no evidence of acute intracranial hemorrhage or territorial infarction. No abnormal mass effect or midline shift is seen. Dunlap to white matter differentiation is well preserved. No extra-axial fluid collections are identified. No hydrocephalus. No significant volume loss. There is no abnormal attenuation within the brain parenchyma. The osseous structures and soft tissues are normal. The mastoid air cells and visualized portions of the paranasal sinuses are well aerated. IMPRESSION: No acute intracranial pathology. DICTATED BY: ANEL BRIZUELA MD DATE/TIME DICTATED:12/03/16129 Pertinent Lab Results: Intake & Output 12/05 1600 12/05 0400 12/04 1600 12/04 0400 12/03 1600 12/03 0400 Intake Total 360 600 480 800 975 0 Output Total Balance 360 600 480 800 975 0 Intake, IV 375 Intake, Oral 360 600 480 800 600 0 Number 0 1 Bowel Movements Patient 79.832 kg 80 kg Weight Weight Reported by Patient Measurement Method Laboratory Tests 12/05/16 0851: Ammonia Pending 12/05/16 0720: CBC w Diff NO MAN DIFF REQ, RBC 4.48 L, MCV 89.6, MCH 30.9, RDW 15.0 H, MPV 7.8, Gran % 69.8, Lymphocytes % 20.4 L, Monocytes % 7.2, Eosinophils % 2.1, Basophils % 0.5, Absolute Granulocytes 3.3, Absolute Lymphocytes 1.0 L, Absolute Monocytes 0.3, Absolute Eosinophils 0.1, Absolute Basophils 0, PUBS MCHC 34.5 12/04/16 0635: Anion Gap 7, Estimated GFR > 60, BUN/Creatinine Ratio 22.5, Total Bilirubin 1.7 H, Direct Bilirubin 0.4, AST 86 H, ALT 97 H, Alkaline Phosphatase 96, Total Protein 6.3, Albumin 2.8 L, CBC w Diff NO MAN DIFF REQ, RBC 4.57 L, MCV 88.4, MCH 30.8, RDW 15.5 H, MPV 8.7, Gran % 63.8, Lymphocytes % 24.0, Monocytes % 9.7 H, Eosinophils % 2.2, Basophils % 0.3, Absolute Granulocytes 2.4, Absolute Lymphocytes 0.9 L, Absolute Monocytes 0.4, Absolute Eosinophils 0.1, Absolute Basophils 0, PUBS MCHC 34.8 12/04/16 0600: Alpha Fetoprotein Pending 12/03/16 1155: Anion Gap 7, Estimated GFR > 60, BUN/Creatinine Ratio 24.0, Hemoglobin A1c Pending 12/03/16 1155: Alpha Fetoprotein Cancelled, PT 16.3 H, INR 1.56 H, CBC w Diff MAN DIFF ORDERED, RBC 4.12 L, MCV 89.3, MCH 30.9, RDW 15.3 H, MPV 9.4, Gran % 57.7, Lymphocytes % 28.0, Monocytes % 12.1 H, Eosinophils % 1.7, Basophils % 0.5, Absolute Granulocytes 1.5, Segmented Neutrophils 53, Band Neutrophils 2, Absolute Lymphocytes 0.7 L, Lymphocytes 29, Monocytes 13 H, Absolute Monocytes 0.3, Eosinophils 3, Absolute Eosinophils 0, Absolute Basophils 0, Platelet Estimate , Normocytic RBCs VERIFIED, Normochromic RBCs VERIFIED, PUBS MCHC 34.7, Hepatitis A IgM Ab NONREACTIVE, Hep Bs Antigen NONREACTIVE, Hep B Core IgM Ab Conf NONREACTIVE, Hepatitis C Antibody REACTIVE H 12/03/16 0155: Ammonia 74 H 12/03/16 0048: Urine Opiates Screen < 100.00, Methadone Screen < 40, Barbiturate Screen < 60, Ur Phencyclidine Scrn < 6.00, Amphetamines Screen < 100, U Benzodiazepines Scrn < 85, Urine Cocaine Screen < 50, Urine Cannabis Screen < 5.00, Urinalysis LIGHT H, Urine Color YEL, Urine Clarity HAZY H, Urine pH 7.0, Ur Specific Morris 1.015, Urine Protein NEG, Urine Ketones NEG, Urine Nitrite NEG, Urine Bilirubin NEG, Urine Urobilinogen 2.0 H, Ur Leukocyte Esterase TRACE H, Ur Microscopic SEDIMENT EXAMINED, Urine RBC 25-50 H, Urine WBC 3-5 H, Ur Epithelial Cells RARE, Urine Bacteria FEW H, Micro UA Comment , Urine Hemoglobin LARGE H, Urine Glucose >=1000 H 12/03/16 0035: Anion Gap 8, Estimated GFR > 60, BUN/Creatinine Ratio 28.0 H, Glucose 376 H, Calcium 9.1, Total Bilirubin 2.0 H, AST 86 H, ALT 99 H, Alkaline Phosphatase 102, Troponin I < 0.01, Total Protein 6.1 L, Albumin 2.7 L, Globulin 3.4, Albumin/Globulin Ratio 0.8 L, TSH 1.160, Thyroxine (T4) 9.3, Thyroxine Binding Indx 41.8 H, CBC w Diff NO MAN DIFF REQ, RBC 4.41 L, MCV 88.1, MCH 30.5, RDW 15.3 H, MPV 7.8, Gran % 58.4, Lymphocytes % 25.5, Monocytes % 13.8 H, Eosinophils % 1.7, Basophils % 0.6, Absolute Granulocytes 2.1, Absolute Lymphocytes 0.9 L, Absolute Monocytes 0.5, Absolute Eosinophils 0.1, Absolute Basophils 0, PUBS MCHC 34.7, Salicylates < 1.0, Acetaminophen < 10.0 L, Serum Alcohol < 10.0 Microbiology 12/03 0048 URINE ROUT: Urine Culture - RES BETA STREP GROUP B Laboratory Tests 12/05 12/05 0851 0720 Chemistry Ammonia Pending Hematology CBC w Diff NO MAN DIFF REQ WBC (4.8 - 10.8 /CUMM) 4.7 L RBC (4.70 - 6.10 /CUMM) 4.48 L Hgb (14.0 - 18.0 G/DL) 13.8 L Hct (42 - 52 %) 40.1 L MCV (80.0 - 94.0 FL) 89.6 MCH (27.0 - 31.0 PG) 30.9 RDW (11.5 - 14.5 %) 15.0 H Plt Count (130 - 400 /CUMM) 45 L MPV (7.4 - 10.4 FL) 7.8 Gran % (42.2 - 75.2 %) 69.8 Lymphocytes % (20.5 - 51.1 %) 20.4 L Monocytes % (1.7 - 9.3 %) 7.2 Eosinophils % (0 - 5 %) 2.1 Basophils % (0.0 - 2.0 %) 0.5 Absolute Granulocytes (1.4 - 6.5 /CUMM) 3.3 Absolute Lymphocytes (1.2 - 3.4 /CUMM) 1.0 L Absolute Monocytes (0.10 - 0.60 /CUMM) 0.3 Absolute Eosinophils (0.0 - 0.7 /CUMM) 0.1 Absolute Basophils (0.0 - 0.2 /CUMM) 0 PUBS MCHC (33.0 - 37.0 G/DL) 34.5 12/04 12/04 12/03 0635 0600 1155 Chemistry Sodium (137 - 145 mmol/L) 138 137 Potassium (3.5 - 5.1 mmol/L) 3.9 3.5 Chloride (98 - 107 mmol/L) 107 108 H Carbon Dioxide (22 - 30 mmol/L) 24 21 L Anion Gap (5 - 16) 7 7 BUN (9 - 20 mg/dL) 9 12 Creatinine (0.7 - 1.2 mg/dL) 0.4 L 0.5 L Estimated GFR (>60 ml/min) > 60 > 60 BUN/Creatinine Ratio (7 - 25 %) 22.5 24.0 Hemoglobin A1c (4.2 - 5.8 %) Pending Total Bilirubin (0.2 - 1.3 mg/dL) 1.7 H Direct Bilirubin (< 0.4 mg/dL) 0.4 AST (17 - 59 U/L) 86 H ALT (21 - 72 U/L) 97 H Alkaline Phosphatase (< 127 U/L) 96 Total Protein (6.3 - 8.2 g/dL) 6.3 Albumin (3.5 - 5.0 g/dL) 2.8 L Alpha Fetoprotein Pending Hematology CBC w Diff NO MAN DIFF REQ WBC (4.8 - 10.8 /CUMM) 3.8 L RBC (4.70 - 6.10 /CUMM) 4.57 L Hgb (14.0 - 18.0 G/DL) 14.1 Hct (42 - 52 %) 40.3 L MCV (80.0 - 94.0 FL) 88.4 MCH (27.0 - 31.0 PG) 30.8 RDW (11.5 - 14.5 %) 15.5 H Plt Count (130 - 400 /CUMM) 35 L MPV (7.4 - 10.4 FL) 8.7 Gran % (42.2 - 75.2 %) 63.8 Lymphocytes % (20.5 - 51.1 %) 24.0 Monocytes % (1.7 - 9.3 %) 9.7 H Eosinophils % (0 - 5 %) 2.2 Basophils % (0.0 - 2.0 %) 0.3 Absolute Granulocytes (1.4 - 6.5 /CUMM) 2.4 Absolute Lymphocytes (1.2 - 3.4 /CUMM) 0.9 L Absolute Monocytes (0.10 - 0.60 /CUMM) 0.4 Absolute Eosinophils (0.0 - 0.7 /CUMM) 0.1 Absolute Basophils (0.0 - 0.2 /CUMM) 0 PUBS MCHC (33.0 - 37.0 G/DL) 34.8 12/03 12/03 1155 0155 Chemistry Ammonia (9 - 30 umol/L) 74 H Alpha Fetoprotein Cancelled Coagulation PT (9.4 - 12.5 SEC) 16.3 H INR (0.90 - 1.17) 1.56 H Hematology CBC w Diff MAN DIFF ORDERED WBC (4.8 - 10.8 /CUMM) 2.6 L RBC (4.70 - 6.10 /CUMM) 4.12 L Hgb (14.0 - 18.0 G/DL) 12.7 L Hct (42 - 52 %) 36.8 L MCV (80.0 - 94.0 FL) 89.3 MCH (27.0 - 31.0 PG) 30.9 RDW (11.5 - 14.5 %) 15.3 H Plt Count (130 - 400 /CUMM) 28 *L MPV (7.4 - 10.4 FL) 9.4 Gran % (42.2 - 75.2 %) 57.7 Lymphocytes % (20.5 - 51.1 %) 28.0 Monocytes % (1.7 - 9.3 %) 12.1 H Eosinophils % (0 - 5 %) 1.7 Basophils % (0.0 - 2.0 %) 0.5 Absolute Granulocytes (1.4 - 6.5 /CUMM) 1.5 Segmented Neutrophils (42.2 - 75.2 %) 53 Band Neutrophils (0.0 - 5.0 %) 2 Absolute Lymphocytes (1.2 - 3.4 /CUMM) 0.7 L Lymphocytes (20.5 - 51.1 %) 29 Monocytes (1.7 - 9.3 %) 13 H Absolute Monocytes (0.10 - 0.60 /CUMM) 0.3 Eosinophils (0 - 5.0 %) 3 Absolute Eosinophils (0.0 - 0.7 /CUMM) 0 Absolute Basophils (0.0 - 0.2 /CUMM) 0 Platelet Estimate (ADEQUATE) Normocytic RBCs VERIFIED Normochromic RBCs VERIFIED PUBS MCHC (33.0 - 37.0 G/DL) 34.7 Serology Hepatitis A IgM Ab (NONREACTIVE) NONREACTIVE Hep Bs Antigen (NONREACTIVE) NONREACTIVE Hep B Core IgM Ab Conf (NONREACTIVE) NONREACTIVE Hepatitis C Antibody (NONREACTIVE) REACTIVE H 12/03 0048 Toxicology Urine Opiates Screen (>2000 NG/ML) < 100.00 Methadone Screen (>300 NG/ML) < 40 Barbiturate Screen (>200 NG/ML) < 60 Ur Phencyclidine Scrn (>25 NG/ML) < 6.00 Amphetamines Screen (>1000 NG/ML) < 100 U Benzodiazepines Scrn (>200 NG/ML) < 85 Urine Cocaine Screen (>300 NG/ML) < 50 Urine Cannabis Screen (>50 NG/ML) < 5.00 Urines Urinalysis LIGHT H Urine Color (YEL,AMB,STR) YEL Urine Clarity (CLEAR) HAZY H Urine pH (5.0 - 8.0) 7.0 Ur Specific Morris (1.001 - 1.035) 1.015 Urine Protein (NEG,<30 MG/DL) NEG Urine Ketones (NEG) NEG Urine Nitrite (NEG) NEG Urine Bilirubin (NEG) NEG Urine Urobilinogen (0.1 - 1.0 EU/dl) 2.0 H Ur Leukocyte Esterase (NEG) TRACE H Ur Microscopic SEDIMENT EXAMINED Urine RBC (0 - 5 /HPF) 25-50 H Urine WBC (0 - 2 /HPF) 3-5 H Ur Epithelial Cells (NONE,FEW) RARE Urine Bacteria (NEG/NONE) FEW H Micro UA Comment Urine Hemoglobin (NEG) LARGE H Urine Glucose (N MG/DL) >=1000 H 12/03 0035 Chemistry Sodium (137 - 145 mmol/L) 140 Potassium (3.5 - 5.1 mmol/L) 3.7 Chloride (98 - 107 mmol/L) 110 H Carbon Dioxide (22 - 30 mmol/L) 22 Anion Gap (5 - 16) 8 BUN (9 - 20 mg/dL) 14 Creatinine (0.7 - 1.2 mg/dL) 0.5 L Estimated GFR (>60 ml/min) > 60 BUN/Creatinine Ratio (7 - 25 %) 28.0 H Glucose (65 - 99 mg/dL) 376 H Calcium (8.4 - 10.2 mg/dL) 9.1 Total Bilirubin (0.2 - 1.3 mg/dL) 2.0 H AST (17 - 59 U/L) 86 H ALT (21 - 72 U/L) 99 H Alkaline Phosphatase (< 127 U/L) 102 Troponin I (<0.11 ng/ml) < 0.01 Total Protein (6.3 - 8.2 g/dL) 6.1 L Albumin (3.5 - 5.0 g/dL) 2.7 L Globulin (1.9 - 4.2 gm/dL) 3.4 Albumin/Globulin Ratio (1.1 - 2.2 %) 0.8 L TSH (0.270 - 4.200 uIU/mL) 1.160 Thyroxine (T4) (4.5 - 10.9 ug/dL) 9.3 Thyroxine Binding Indx (23.5 - 40.5 % UPTAKE) 41.8 H Hematology CBC w Diff NO MAN DIFF REQ WBC (4.8 - 10.8 /CUMM) 3.7 L RBC (4.70 - 6.10 /CUMM) 4.41 L Hgb (14.0 - 18.0 G/DL) 13.4 L Hct (42 - 52 %) 38.8 L MCV (80.0 - 94.0 FL) 88.1 MCH (27.0 - 31.0 PG) 30.5 RDW (11.5 - 14.5 %) 15.3 H Plt Count (130 - 400 /CUMM) 49 L MPV (7.4 - 10.4 FL) 7.8 Gran % (42.2 - 75.2 %) 58.4 Lymphocytes % (20.5 - 51.1 %) 25.5 Monocytes % (1.7 - 9.3 %) 13.8 H Eosinophils % (0 - 5 %) 1.7 Basophils % (0.0 - 2.0 %) 0.6 Absolute Granulocytes (1.4 - 6.5 /CUMM) 2.1 Absolute Lymphocytes (1.2 - 3.4 /CUMM) 0.9 L Absolute Monocytes (0.10 - 0.60 /CUMM) 0.5 Absolute Eosinophils (0.0 - 0.7 /CUMM) 0.1 Absolute Basophils (0.0 - 0.2 /CUMM) 0 PUBS MCHC (33.0 - 37.0 G/DL) 34.7 Toxicology Salicylates (0 - 20.0 mg/dL) < 1.0 Acetaminophen (10.0 - 30.0 ug/mL) < 10.0 L Serum Alcohol (<10 MG/DL) < 10.0 Vital Signs Date Time Temp Pulse Resp B/P B/P Pulse O2 O2 Flow FiO2 Mean Ox Delivery Rate 12/05 0937 71 118/64 12/05 0648 98.1 71 20 118/64 98 Room Air 12/04 2221 98.5 62 20 124/70 97 Room Air 12/04 1418 98.2 99 20 145/82 97 Disposition Summary Disposition Principal Diagnosis: Hepatic encephalopathy Additional Diagnosis: Cirrhosis due to hepatitis C Discharge Disposition: home or self care Discharge Instructions General Discharge Information Code Status: Full Code Patient's Diet: Diabetic diet Patient's Activity: As tolerated Follow-Up Instructions/Appts: Please follow up with your PCP Dr. Norma Sheets, GI is Dr. Martinez in 1 week. Medications at Discharge Discharge Medications: Continue taking these medications: Nadolol (Nadolol) 20 MG TABLET 1 Tablet ORAL DAILY Omeprazole (Omeprazole) 40 MG CAPSULE. 1 Capsule ORAL DAILY Start taking the following new medications: Lactulose (Lactulose) 20 GRAM/30 ML SOLUTION 30 Gram ORAL THREE TIMES DAILY Days = 7 No Refills Insulin Detemir (Levemir) 100 UNIT/ML VIAL 15 Units Inject into fatty tissue TWICE DAILY Days = 30 No Refills Insulin Aspart (Novolog) 100 UNIT/ML VIAL 0 Inject into fatty tissue 3 TIMES DAILY BEFORE MEALS Qty = 30 No Refills Instructions: Blood sugar # UNIT Less than 80 0 80-100 4 101-120 4 121-150 4 151-200 6 201-250 8 251-300 10 301-350 12 351-400 14 More than 400 16 units Insulin Aspart (Novolog) 100 UNIT/ML VIAL 0 Inject into fatty tissue BEDTIME Qty = 10 No Refills Instructions: Blood sugar # UNITS Less than 250 0 251-300 2 301-350 3 351-400 4 more than 400 5 Copies To: ASHLEY QUIÑONEZ,CATALINO; ANDREI QUIÑONEZ,CHIKA; JOSE QUIÑONEZ,IMMANUEL Attending MD Review Statement Documenting Attending: WILLA QUIÑONEZ,JOVANNY
[2016-12-05 11:11] LABS: PLATELET COUNT 45 /CUMM (130-400)
--- NOTE | 2016-12-05 11:24 | NUR ---
Asked by RD to visit with pt regarding diet questions. Visited with pt utilizing translation phone. Discussed cons CHO diet and pt would like snacks TID between meals and would like this RD to pick his meals for him so he doesn't have to figure out CHO portions. RD will enter meal choices for pt until discharge. Thank you
--- NOTE | 2016-12-05 12:49 | Cons- Endocrinology ---
General Information and HPI Consulting Request Date of Consult: 12/05/16 Requested By: medical team Reason for Consult: management of DM. Source of Information: patient, old records Exam Limitations: language barrier History of Present Illness: Patient is a 41-year-old Guamanian Speaking male with significant past medical history of hepatitis C , uncontrolled diabetes, was admitted for generalized weakness and high sugar level. He was put on Levemir 15 units twice a day, Novolog coverage before meals and Novolog coverage at bedtime. His FSGs were 272 , 500, 473, 372, 425, 433, 344 and 276. I was asked to see him this morning for help controlling his DM. Allergies/Medications Allergies: Coded Allergies: No Known Allergies (12/03/16) Home Med List: Lactulose 20 GRAM/30 ML SOLUTION 30 GM PO TID HEPATIC ENCEPHALOPATHY Nadolol 20 MG TABLET 1 TAB PO DAILY ESOPHAGEAL VARICES (Reported) Omeprazole 40 MG CAPSULE. 1 CAP PO DAILY LIVER/GERD (Reported) Review of Systems Review of Systems Constitutional: Reports: see HPI (language barrier). Past History Travel History Traveled to [place] past 21 day No Medical History Blood Transfusion Hx: Yes Neurological: NONE EENT: NONE Cardiovascular: NONE Respiratory: NONE Gastrointestinal: NONE Hepatic: cirrhosis, hepatitis C, hepatic encephalopathy Renal: NONE Musculoskeletal: NONE Psychiatric: NONE Endocrine: diabetes Blood Disorders: NONE Cancer(s): NONE ECONOMIC DEVELOPMENT SPECIALIST/Reproductive: NONE Surgical History Surgical History: non-contributory Psychosocial History Where Do You Live? Home Services at Home: None Smoking Status: Current Everyday Smoker Exam & Diagnostic Data Last 24 Hrs of Vital Signs/I&O Vital Signs Date Time Temp Pulse Resp B/P B/P Pulse O2 O2 Flow FiO2 Mean Ox Delivery Rate 12/05 0937 71 118/64 12/05 0648 98.1 71 20 118/64 98 Room Air 12/04 2221 98.5 62 20 124/70 97 Room Air 12/04 1418 98.2 99 20 145/82 97 Intake & Output 12/05 1600 12/05 0800 12/05 0000 Intake Total 360 600 Output Total Balance 360 600 Intake, Oral 360 600 Physical Exam General Appearance: no apparent distress Neck: normal inspection Respiratory: lungs clear Cardiovascular: regular rate/rhythm Gastrointestinal: soft Extremities: no edema Labs/Evaristo Results: Laboratory Tests 12/05 12/05 0851 0720 Chemistry Ammonia Pending Hematology CBC w Diff NO MAN DIFF REQ WBC (4.8 - 10.8 /CUMM) 4.7 L RBC (4.70 - 6.10 /CUMM) 4.48 L Hgb (14.0 - 18.0 G/DL) 13.8 L Hct (42 - 52 %) 40.1 L MCV (80.0 - 94.0 FL) 89.6 MCH (27.0 - 31.0 PG) 30.9 RDW (11.5 - 14.5 %) 15.0 H Plt Count (130 - 400 /CUMM) 45 L MPV (7.4 - 10.4 FL) 7.8 Gran % (42.2 - 75.2 %) 69.8 Lymphocytes % (20.5 - 51.1 %) 20.4 L Monocytes % (1.7 - 9.3 %) 7.2 Eosinophils % (0 - 5 %) 2.1 Basophils % (0.0 - 2.0 %) 0.5 Absolute Granulocytes (1.4 - 6.5 /CUMM) 3.3 Absolute Lymphocytes (1.2 - 3.4 /CUMM) 1.0 L Absolute Monocytes (0.10 - 0.60 /CUMM) 0.3 Absolute Eosinophils (0.0 - 0.7 /CUMM) 0.1 Absolute Basophils (0.0 - 0.2 /CUMM) 0 PUBS MCHC (33.0 - 37.0 G/DL) 34.5 12/04 05 0635 0600 Chemistry Sodium (137 - 145 mmol/L) 138 Potassium (3.5 - 5.1 mmol/L) 3.9 Chloride (98 - 107 mmol/L) 107 Carbon Dioxide (22 - 30 mmol/L) 24 Anion Gap (5 - 16) 7 BUN (9 - 20 mg/dL) 9 Creatinine (0.7 - 1.2 mg/dL) 0.4 L Estimated GFR (>60 ml/min) > 60 BUN/Creatinine Ratio (7 - 25 %) 22.5 Total Bilirubin (0.2 - 1.3 mg/dL) 1.7 H Direct Bilirubin (< 0.4 mg/dL) 0.4 AST (17 - 59 U/L) 86 H ALT (21 - 72 U/L) 97 H Alkaline Phosphatase (< 127 U/L) 96 Total Protein (6.3 - 8.2 g/dL) 6.3 Albumin (3.5 - 5.0 g/dL) 2.8 L Alpha Fetoprotein Pending Hematology CBC w Diff NO MAN DIFF REQ WBC (4.8 - 10.8 /CUMM) 3.8 L RBC (4.70 - 6.10 /CUMM) 4.57 L Hgb (14.0 - 18.0 G/DL) 14.1 Hct (42 - 52 %) 40.3 L MCV (80.0 - 94.0 FL) 88.4 MCH (27.0 - 31.0 PG) 30.8 RDW (11.5 - 14.5 %) 15.5 H Plt Count (130 - 400 /CUMM) 35 L MPV (7.4 - 10.4 FL) 8.7 Gran % (42.2 - 75.2 %) 63.8 Lymphocytes % (20.5 - 51.1 %) 24.0 Monocytes % (1.7 - 9.3 %) 9.7 H Eosinophils % (0 - 5 %) 2.2 Basophils % (0.0 - 2.0 %) 0.3 Absolute Granulocytes (1.4 - 6.5 /CUMM) 2.4 Absolute Lymphocytes (1.2 - 3.4 /CUMM) 0.9 L Absolute Monocytes (0.10 - 0.60 /CUMM) 0.4 Absolute Eosinophils (0.0 - 0.7 /CUMM) 0.1 Absolute Basophils (0.0 - 0.2 /CUMM) 0 PUBS MCHC (33.0 - 37.0 G/DL) 34.8 Assessment/Plan Assessment/Plan Patient is a 41-year-old Guamanian Speaking male with significant past medical history of hepatitis C , uncontrolled diabetes, was admitted for generalized weakness and high sugar level. He was put on Levemir 15 units twice a day, Novolog coverage before meals and Novolog coverage at bedtime. His glucose levels have been controlled. DM management: 1. continue Levemir 15 units twice a day; 2. adjust Novolog coverage before meals-detail see the inpatient DM orders; 3. continue the current Novolog coverage at bedtime. 4. monitor FSGs. will follow. Inpatient Diabetes Orders Before Each Meal: Bolus Insulin: Novolog < 80 mg/dl: no coverage 80-100 mg/dl: 4 units 101-120 mg/dl: 4 units 121-150 mg/dl: 4 units 151-200 mg/dl: 6 units 201-250 mg/dl: 8 units 251-300 mg/dl: 10 units 301-350 mg/dl: 12 units 351-400 mg/dl: 14 units > 400 mg/dl: 16 units Consult Acknowledgment - Thank you for your consult request.
[2016-12-05] MEDS ORDERED: LEVEMIR100 UNIT/1 SC (13:05)
[2016-12-05] MEDS ORDERED: NOVOLOG100 UNIT/2 SC ×2 (13:05)
[2016-12-05 14:46] VITALS: BP 140/80
== END 2016-12-05 15:36 | DRG 279 ==
LOC: ERH 23:55 → ERHI 12-03 03:38 → 2NA 12-03 03:38 → ENRESERV 12-03 05:45 → 2NA 12-03 06:02 → ENPENDDIS 12-05 13:14 → 2NA 12-05 15:36
PROVIDERS: Emergency Medicine; Radiology Diagnostic Radiology; Student in an Organized Health Care Education/Training Program; ADMIT Student in an Organized Health Care Education/Training Program
DX: K72.90 Hepatic failure, unspecified without coma (principal); D61.818 Other pancytopenia; D69.6 Thrombocytopenia, unspecified; E11.65 Type 2 diabetes mellitus with hyperglycemia; B18.2 Chronic viral hepatitis C; K74.60 Unspecified cirrhosis of liver; F17.210 Nicotine dependence, cigarettes, uncomplicated; Z79.4 Long term (current) use of insulin
CPT/HCPCS: 2NAP; 36415; 80307; 81001; 82436; 87086; 87088; 87147; 93005; 93010; G0480